=== PATIENT | male | born 1945 | race Caucasian/White ===

== ENCOUNTER → 2016-03-09 | Outpatient (CLI) | payer MEDICARE, BC ==
[2016-03-09 18:43] LABS: CH 22.2; CHCM 29.4; HDW 2.93; HGB 11.6 gm/dL (13.0-17.5); Hypochromasia Marked; MCH 23.1 pg (25.0-35.0); MCHC 30.5 g/dL (31.0-37.0); MCV 75.8 fL (80.0-100.0); Mean Platelet Volume 6.2; Microcytosis Slight; RBC 5.01 m/uL (4.30-5.90); RDW 14.5 % (11.5-15.5); WBC 8.5 k/uL (3.8-10.6)
[2016-03-09 19:06] LABS: Anion Gap 13 mmol/L; Blood Urea Nitrogen 19 mg/dL (9-20); Carbon Dioxide 28 mmol/L (22-30); Chloride 101 mmol/L (98-107); Non-African American GFR(MDRD) >60 (>60 ml/min/1.73 sqM); Potassium 4.7 mmol/L (3.5-5.1); Sodium 142 mmol/L (137-145)
== END | disposition home or self-care (01) ==
LOC: LAB 17:59
PROVIDERS: ATTEND Internal Medicine Interventional Cardiology
DX: Z01.818 Encounter for other preprocedural examination (principal); I25.118 Atherosclerotic heart disease of native coronary artery with other forms of angina pectoris
CPT/HCPCS: 80051; 82565; 84520; 85027

== ENCOUNTER 2016-03-16 05:54 | Day surgery (SDC) | payer MEDICARE, BC ==
[2016-03-13 16:01] VITALS: BMI 29.0
[2016-03-16 06:35] LABS: Glucose,Whole Blood 99 mg/dL (75-99)
[2016-03-16] MEDS ORDERED: NITROGLYCERIN SL TABS 0.4 MG TAB SUBLINGUAL PRN (06:40)
[2016-03-16] MEDS ORDERED: SODIUM CHLORIDE 0.9% 1,000 ML in EMPTY BAG 1 BAG IV ONE (06:40)
[2016-03-16] MEDS ORDERED: ATORVASTATIN 80 MG TAB PO STA (06:40)
[2016-03-16] MEDS ORDERED: ALPRAZolam 0.5 MG TAB PO PRN (06:40)
[2016-03-16] MEDS ORDERED: ALPRAZolam 0.25 MG TAB PO PRN (06:40)
[2016-03-16] MEDS ORDERED: ASPIRIN 325 MG TAB PO STA (06:40)
[2016-03-16] MEDS ORDERED: ASPIRIN 81 MG CHEW PO ONE (06:42)
[2016-03-16] MEDS ORDERED: ASPIRIN 81 MG CHEW ONE (06:43)
[2016-03-16 06:44] LABS: INR 1.4 (<1.1); Prothrombin Time 14.1 sec (9.0-12.0)
[2016-03-16 06:56] LABS: Glucose,Whole Blood 100 mg/dL (75-99)
[2016-03-16] MEDS: MIDAZOLAM 2 MG/2 ML VIAL IVP ONE ×2 (07:22→07:33)
[2016-03-16] MEDS ORDERED: diphenhydrAMINE 50 MG/ML 1 ML VIAL IVP ONE (07:23)
[2016-03-16] MEDS ORDERED: LIDOCAINE 2% INJ 20 MG/ML SQ ONE (07:26)
[2016-03-16 08:12] LABS: Site FA
[2016-03-16 08:13] LABS: Site PA
[2016-03-16] MEDS ORDERED: HYDROmorphone 2 MG/ML 1 ML SYRINGE IVP ONE (08:22)
[2016-03-16] MEDS ORDERED: IOHEXOL 350 MG/ML 100 ML BOTTLE INJ ONE (08:26)
--- NOTE | 2016-03-16 09:46 | CC ---
DATE OF SERVICE: This is a 70-year-old gentleman with a history of hypertension, diabetes, hypercholesterolemia with a history of hypertrophic cardiomyopathy, status post myomectomy more than 25 years ago and also had an aortocoronary bypass surgery that was performed in 2004 with a MORRISON to LAD, a free radial artery graft to the obtuse marginal and a Y-shaped graft to the PDA and PLV branches of the RCA. A cardiac catheterization in 2013 revealed patent grafts, total occlusion of LAD, RCA and diffuse disease of circumflex. Because of increasing symptoms of chest pressure, shortness of breath and significant decrease in functional capacity, he was advised to have a cardiac cath as well as a JASMIN. He has ICD which is a dual-chamber ICD. PROCEDURE NOTE: Under local anesthesia and strict aseptic precautions, a 6-Congolese introducer was placed in the right femoral artery and an 8-Congolese introducer in the right femoral vein. I had considerable difficulty for venous access mainly because of calcification and also scar tissue. Using a right heart balloon tipped catheter, I performed a right heart cath, checked all the pressures, hemodynamics and the catheter was left in the left pulmonary artery. Hemodynamics and saturations and thermodilution cardiac output was performed. Subsequently, using a standard left Leidy catheter, I performed coronary angiography of the left system. Then using a Lenin catheter, I performed selective injection of the RCA and also the MORRISON injection. Using an AR-2 catheter, I performed selective injection of the obtuse marginal graft as well as the RCA graft which was a graft that had 2 limbs. I did not perform an LV gram of check LV pressures, but the patient was going to have a JASMIN. CORONARY ANGIOGRAPHY FINDINGS: LEFT MAIN CORONARY ARTERY: This is a short, patent vessel with diffuse disease of nearly 35% left main stenosis with some damping. Left main itself has moderate disease is a very short left main. LEFT ANTERIOR DESCENDING CORONARY ARTERY: This is a totally occluded and seen as a flush occlusion. LEFT POSTERIOR CIRCUMFLEX CORONARY ARTERY: Technically this is a codominant-type vessel that has diffuse disease. The proximal portion has a 40% stenosis. It gives off a high obtuse marginal that also has diffuse disease then the obtuse marginal branches are somewhat occluded and distally it gives off a posterolateral branch. There is diffuse disease in the circumflex. Interestingly, there opacification of the obtuse marginal branch, which has some competitive flow and this appears to be the bypass graft, which is offering the competitive flow and the attachment is also available in the cranial projection. The obtuse marginal appears to be fairly well opacified. RIGHT CORONARY ARTERY: This vessel is totally occluded in the midportion after an acute marginal branch, which is large and supplies a fair amount of myocardium. RCA therefore is 100% occluded in the midportion. LEFT INTERNAL MAMMARY ARTERY GRAFT TO LAD: This graft is widely patent at its origin, course, insertion site and the opacified LAD has mildly diffuse disease, but no significant obstructive CAD is noted. SAPHENOUS VEIN GRAFT TO THE 2 BRANCHES OF RCA: This is a graft with 2 limbs. The graft is patent in its origin, course, and also both the limbs are patent. The upper limb opacifies the PDA. Lower limb opacifies the PLV branch. Both the vessels are opacified. There is mild diffuse disease and somewhat of a sluggish flow in the second limb, but overall flow is good. I do not think there is any significant lesion. FREE RADIAL ARTERY GRAFT TO THE OBTUSE MARGINAL BRANCH OF CIRCUMFLEX: This graft was opacified using AR-2 catheter. The graft has an ostial disease of maybe 30% or so. The flow in this graft is very good. There is no critical stenosis. The body of the graft is good, insertion site is good and also it opacifies a good-sized obtuse marginal branch that seems to supply a sizable amount of myocardium. The PLV branch/obtuse marginal branch is free of significant disease with minor irregularities. FINAL IMPRESSION: This patient has a total occlusion of LAD in the ostial portion in the RCA in the midportion. Circumflex has diffuse disease. The free radial artery graft to the obtuse marginal is patent with a decent flow with the ostial disease of about 40%. The vein graft to the 2 limbs of RCA is patent with preserved flow, some diffuse disease in the distal branches. The MORRISON to LAD is widely patent with diffuse disease the distal branches. This patient also had a right heart catheterization. The RA pressure was 9 mmHg, RV pressure was 45/9. The PA pressure was 45/18 with a mean of 28. Wedge pressure was 19 mmHg and the V-wave was quite high at 36 mmHg. The thermodilution cardiac output was 5.4 L. The Elaina cardiac output was 4.06 L. Femoral arterial saturation was 95%. The PA saturation was 58%. This patient has decreased cardiac output in general. He has elevated pressures both on the right and left side. There is also significant mitral regurgitation based on the V-wave pattern. RECOMMENDATIONS: I would recommend for coronary disease we will pursue medical therapy but I will await the JASMIN findings. The patient has severely calcified mitral valve with both stenosis and regurgitation. This will be evaluated further and his pulmonary hypertension appears to be moderate. I discussed the findings in detail with the patient and . I will await the results of the JASMIN and then make further recommendations. The patient will be discharged later on today if he remains stable. RADHA
--- NOTE | 2016-03-16 09:49 | LTR ---
March 16, 2016 MORENA GIL DO RE: YouMargarito Dear Dr. Gil: Thank you for the opportunity to participate in the care of Mr. Margarito Orta. Please find enclosed my detailed cardiac cath report for your records. I am also recommending a JASMIN and based on these findings I will make further recommendations. There was no significant progression of disease in terms of his CAD, but he has definitely some mitral regurgitation and abnormal hemodynamics on the right side and this will be clarified by JASMIN and I will make further recommendations. Thank you for your referral and please call for questions. With kindest regards. Sincerely, ALEJANDRO ALLAN MD
[2016-03-16 12:05] LABS: Glucose,Whole Blood 88 mg/dL (75-99)
[2016-03-16] MEDS ORDERED: fentaNYL (PF) 50 MCG/ML 2 ML AMP ONE (12:08)
[2016-03-16] MEDS ORDERED: MIDAZOLAM 2 MG/2 ML VIAL ONE (12:09)
[2016-03-16] MEDS ORDERED: BENZOCAINE SPRAY 100 APPLIC/CAN MUCOUS MEM ONE ×2 (12:27→12:38)
[2016-03-16] MEDS ORDERED: IV FLUID CONTINUATION 450 ML IV ONE (12:27)
[2016-03-16] MEDS ORDERED: fentaNYL (PF) 50 MCG/ML 2 ML AMP IV ONE (12:38)
[2016-03-16] MEDS ORDERED: MIDAZOLAM 2 MG/2 ML VIAL IV ONE (12:38)
[2016-03-16] MEDS ORDERED: MIDAZOLAM 2 MG/2 ML VIAL IVP ONE ×2 (12:42→12:54)
[2016-03-16 13:27] VITALS: RESP 14
--- NOTE | 2016-03-16 13:56 | XR ---
EXAMINATION TYPE: XR chest 1V portable DATE OF EXAM: 03/16/2016 1:32 PM Comparison: 05/25/2012 Clinical History: 70-year-old female difficult intubation after [employer] procedure today. Findings: Left anterior chest wall AICD generator with right atrial and right ventricular leads. Median sternot jhonatan wires are present with post-CABG clips in mediastinum. Heart is mildly enlarged. Diffuse interstitial prominence. No consolidation, pneumothorax, or pleural effusion seen. Impression: Mild cardiomegaly and chronic appearing changes. No acute process seen. No ET tube is visualized.
[2016-03-16 16:35] VITALS: BP 120/62; PULSE 58; TEMP 98
--- NOTE | 2016-03-17 06:37 | ECHOT ---
DATE OF SERVICE: This transesophageal echocardiogram was performed to evaluate the mitral valve and possible rule out any significant mitral stenosis. This patient is status post myomectomy for hypertrophic cardiomyopathy. The patient was given intravenous sedation with Versed and fentanyl and transesophageal echocardiogram was performed without any complications. Left ventricular chamber is normal in size. There is evidence of left ventricular hypertrophy with normal left ventricular systolic function. There is a heavy calcification of the mitral annulus noted, however, mitral leaflets itself are normal and no rheumatic mitral valve deformity is noted. The main gradient of 4 to 5 mmHg is noted across the mitral valve, which is secondary to mitral annular calcification. There is mild mitral regurgitation noted. The mitral valve area by planimeter is about 2.4 to 2.5 sq cm. Aortic valve is mildly calcified and there is a mild aortic stenosis. The aortic valve is about 1.52 sq cm. Mild tricuspid regurgitation is noted. Interatrial septum is intact. There is no evidence of PFO by saline contrast study. FINAL IMPRESSION: 1. There is a heavy calcification of the mitral annulus noted. However, mitral leaflets are fairly normal without any evidence of rheumatic mitral valvular disease. There is a mean gradient of 4 to 5 mmHg noted across the mitral valve, which is secondary to mitral annular calcification. There is a mild mitral regurgitation noted. Mitral valve area calculated by planimeter and pressure half time is in the range of 2.2 to 2.4 sq cm. 2. The aortic valve is calcified and there is a mild to moderate aortic stenosis with aortic valve area calculated in the range of 1.5 sq cm. 3. There is a mild tricuspid and mitral regurgitation noted. 4. There is no evidence of any patent foramen ovale.
== END 2016-03-16 16:55 | disposition home or self-care (01) ==
LOC: CATHCVL 05:54
PROVIDERS: ATTEND Internal Medicine Interventional Cardiology
DX: I25.110 Atherosclerotic heart disease of native coronary artery with unstable angina pectoris (principal); I11.0 Hypertensive heart disease with heart failure; I25.82 Chronic total occlusion of coronary artery; I42.1 Obstructive hypertrophic cardiomyopathy; E78.00 Pure hypercholesterolemia, unspecified; I48.0 Paroxysmal atrial fibrillation; N40.0 Benign prostatic hyperplasia without lower urinary tract symptoms; E66.9 Obesity, unspecified; Z68.29 Body mass index [BMI] 29.0-29.9, adult; Z79.01 Long term (current) use of anticoagulants; Z79.82 Long term (current) use of aspirin; Z79.899 Other long term (current) drug therapy; Z88.3 Allergy status to other anti-infective agents; Z88.2 Allergy status to sulfonamides; Z88.8 Allergy status to other drugs, medicaments and biological substances; Z95.1 Presence of aortocoronary bypass graft; Z95.810 Presence of automatic (implantable) cardiac defibrillator; Z95.5 Presence of coronary angioplasty implant and graft; Z82.49 Family history of ischemic heart disease and other diseases of the circulatory system; I25.2 Old myocardial infarction
CPT/HCPCS: 93312; 93320; 93325; 93457; 85018; 82810; 85610; 71010; C1769 ×4; C1894 ×2; J2001; J2250; J1170; J1200; Q9967; J3010

== ENCOUNTER → 2016-03-28 | Outpatient (CLI) | payer MEDICARE, BC ==
[2016-03-28 10:18] LABS: Calcium 9.6 mg/dL (8.4-10.2); Potassium 5.5 mmol/L (3.5-5.1)
== END | disposition home or self-care (01) ==
LOC: LABWHC1 09:26
PROVIDERS: ATTEND Internal Medicine Interventional Cardiology
DX: I25.10 Atherosclerotic heart disease of native coronary artery without angina pectoris (principal); I50.9 Heart failure, unspecified
CPT/HCPCS: 36415; 80048

== ENCOUNTER → 2016-04-03 | Outpatient (CLI) | payer MEDICARE, BC ==
[2016-04-03 10:08] LABS: Anion Gap 12 mmol/L; Blood Urea Nitrogen 31 mg/dL (9-20); Carbon Dioxide 27 mmol/L (22-30); Chloride 101 mmol/L (98-107); Non-African American GFR(MDRD) 54 (>60 ml/min/1.73 sqM); Potassium 4.7 mmol/L (3.5-5.1); Sodium 140 mmol/L (137-145)
== END | disposition home or self-care (01) ==
LOC: LABWHC1 09:21
PROVIDERS: ATTEND Internal Medicine Interventional Cardiology
DX: E87.5 Hyperkalemia (principal)
CPT/HCPCS: 36415; 80051; 82565; 84520

== ENCOUNTER → 2016-05-18 | Outpatient (CLI) | payer MEDICARE, BC ==
[2016-05-18 10:35] LABS: Anisocytosis Slight; CH 24.4; CHCM 31.3; HCT 45.5 % (39.0-53.0); HDW 2.73; HGB 13.9 gm/dL (13.0-17.5); Hypochromasia Slight; MCH 23.9 pg (25.0-35.0); MCHC 30.6 g/dL (31.0-37.0); MCV 78.3 fL (80.0-100.0); Mean Platelet Volume 7.5; Microcytosis Slight; RBC 5.81 m/uL (4.30-5.90); RDW 18.3 % (11.5-15.5); WBC 10.8 k/uL (3.8-10.6)
[2016-05-18 10:45] LABS: Anion Gap 12 mmol/L; Blood Urea Nitrogen 23 mg/dL (9-20); Calcium 9.7 mg/dL (8.4-10.2); Carbon Dioxide 28 mmol/L (22-30); Chloride 99 mmol/L (98-107); Glucose 109 mg/dL (74-99); INR 2.9 (<1.1); Non-African American GFR(MDRD) >60 (>60 ml/min/1.73 sqM); Prothrombin Time 28.3 sec (9.0-12.0); Sodium 139 mmol/L (137-145)
[2016-05-18 10:57] LABS: Potassium 5.2 mmol/L (3.5-5.1)
== END ==
LOC: LABWHC1 09:38
PROVIDERS: ATTEND Internal Medicine Interventional Cardiology
DX: I50.9 Heart failure, unspecified (principal); I25.10 Atherosclerotic heart disease of native coronary artery without angina pectoris; I48.91 Unspecified atrial fibrillation
CPT/HCPCS: 36415; 80048; 85027; 85610

== ENCOUNTER → 2016-07-06 | Outpatient (CLI) | payer MEDICARE, BC ==
--- NOTE | 2016-07-06 11:38 | CT ---
EXAMINATION TYPE: CT lumbar spine wo con DATE OF EXAM: 07/06/2016 10:22 AM COMPARISON: Previous exam 23 Jul 2012 HISTORY: Patient complains of chronic low back pain with radiation bilaterallly to the legs. Patient has a history of [address] DLP: 1065.4 mGycm Automated exposure control for dose reduction was used. An unenhanced CT of the lumbar spine was performed. Bone and soft tissue window settings are submitt ed as well as coronal and sagittal reconstructions. FINDINGS: Atheromatous changes are present within the aorta, limited dissection is thought to be present at the level of the L3 vertebral body as well as L2. There is no aneurysm. Finding is stable. Surgical brown ges are noted, patient is status post posterior fusion at L2-S1, transpedicular screws are present, h ardware causes streak artifact which may limit the exam. Intervertebral spacing material present L2-3 , L5-S1. Endplate sclerosis present L5-S1, some irregularity of endplate present centrally greater th e inferior endplate of L5 and superior endplate of S1. Diverticular changes incidentally noted in the sigmoid colon. L1-L2: Normal disc space height. No disc herniation protrusion or central stenosis. No facet joint arthropathy. No evidence for foraminal encroachment. L2-L3: Normal disc space height. Posterior extension of endplate disc complex is present causing mild anterior mass effect on the thecal sac, laminectomy changes present. No significant foraminal encroa chment L3-L4: Circumferential extension of endplate disc complex causes mild foraminal encroachment right gr eater than left, no significant central stenosis. Facet arthropathy changes are present. There is eleonora e loss of disc height. L4-L5: Laminectomy changes present. Posterior extension of endplate disc complex contacts the anterio r thecal sac. No significant central stenosis. Circumferential extension of endplate disc complex enc roaches mildly on the neural foramina. Loss of disc height present. There is facet arthropathy. L5-S1: Streak artifact limits the exam. No evident central stenosis. No definite foraminal encroachme nt on the left, circumferential extension of endplate disc complex. 2 encroaches somewhat on the righ t foramen. IMPRESSION: Exam is limited technically. Multilevel degenerative disc disease, postop changes, foraminal encroach ment. Findings at L5-S1 may be postoperative, correlate to exclude infection. Additional findings abo ve.
== END | disposition home or self-care (01) ==
LOC: RADCTMAIN 10:00
PROVIDERS: ATTEND Orthopaedic Surgery
DX: M51.16 Intervertebral disc disorders with radiculopathy, lumbar region (principal); Z98.1 Arthrodesis status
CPT/HCPCS: 72131

== ENCOUNTER → 2016-08-01 | Outpatient (CLI) | payer MEDICARE, BC ==
[2016-08-01 12:57] LABS: Basophils # (A) 0.1 k/uL (0-0.2); Basophils % (A) 1 %; CH 26.2; CHCM 32.1; Eosinophils # (A) 0.6 k/uL (0-0.7); Eosinophils % (A) 5 %; HCT 44.3 % (39.0-53.0); HDW 3.26; HGB 14.2 gm/dL (13.0-17.5); Hypochromasia Slight; Luc % (Auto) 2; Lymphocytes # (A) 1.3 k/uL (1.0-4.8); Lymphocytes % (A) 12 %; MCH 26.2 pg (25.0-35.0); Mean Platelet Volume 6.9; Monocytes % (A) 9 %; Neutrophils % (A) 72 %; RDW 14.6 % (11.5-15.5); WBC 11.2 k/uL (3.8-10.6); WBC (Perox) 10.98
[2016-08-01 13:03] LABS: Appearance,Urine Clear (Clear); Bilirubin,Urine Negative (Negative); Glucose,Urine (UA) Negative (Negative); Ketones,Urine Negative (Negative); Leukocyte Esterase,Urine Negative (Negative); Mucus,Urine Rare /hpf; Nitrite,Urine Negative (Negative); PH, Urine 5.5 (5.0-8.0); Particle Count 2542; Protein,Urine Negative (Negative); RBC,Urine 1 /hpf (0-5); Specific Gravity,Urine 1.008 (1.001-1.035); Squamous Epithelial Cell,Urine <1 /hpf (0-4); UA Billing (MACRO vs. MICRO) MICRO; Urobilinogen,Urine <2.0 mg/dL (<2.0)
[2016-08-01 13:04] LABS: Partial Thromboplastin Time 31.6 sec (22.0-30.0); Prothrombin Time 29.4 sec (9.0-12.0)
[2016-08-01 13:16] LABS: ALT 22 U/L (21-72); AST 24 U/L (17-59); Alkaline Phosphatase 107 U/L (38-126); Anion Gap 10 mmol/L; Blood Urea Nitrogen 23 mg/dL (9-20); Calcium 9.5 mg/dL (8.4-10.2); Carbon Dioxide 30 mmol/L (22-30); Chloride 101 mmol/L (98-107); Glucose 118 mg/dL (74-99); Non-African American GFR(MDRD) 58 (>60 ml/min/1.73 sqM); Potassium 4.7 mmol/L (3.5-5.1); Sodium 141 mmol/L (137-145); Total Bilirubin 1.1 mg/dL (0.2-1.3)
== END | disposition home or self-care (01) ==
LOC: LABWHC1 12:11
PROVIDERS: ATTEND Orthopaedic Surgery
DX: Z01.812 Encounter for preprocedural laboratory examination (principal); D68.9 Coagulation defect, unspecified
CPT/HCPCS: 36415; 80053; 81001; 85025; 85610; 85730; 86850; 86900; 86901; 87070; 87086

== ENCOUNTER 2016-11-24 00:46 | Inpatient (IN) | payer MEDICARE, BC ==
--- NOTE | 2016-11-24 01:11 | ED ---
SOB HPI - General Chief Complaint: Shortness of Breath Stated Complaint: SVETLANA Time Seen by Provider: 11/24/16 00:51 Source: patient Mode of arrival: ambulatory Limitations: no limitations - History of Present Illness Initial Comments: This patient is a 71-year-old man who presents to be evaluated for constellation of symptoms that included feeling shortness of breath, lightheadedness like he would pass out, chest pain and diaphoresis. He states that he has been having episodes like this for about a year. Tonight he got up to use the bathroom and then had all the symptoms come on. He was advised to be checked when he has symptoms like these. The patient states that he is currently completing a pre-surgical evaluation prior to having a mitral valve repair and a pacemaker change. Patient is to have this procedure at [facility]. MD Complaint: shortness of breath Onset/Timin -: year(s) Severity: moderate Quality: dull Consistency: constant Improves With: nothing Worsens With: exertion Known History Of: other (Mitral valve disease) Associated Symptoms: diaphoresis - Related Data Home Medications Medication Instructions Recorded Confirmed Aspirin [Adult Low Dose Aspirin EC] 81 mg PO DAILY 03/16/16 03/16/16 Enalapril [Vasotec] 20 mg PO DAILY 03/16/16 03/16/16 Furosemide [Lasix] 20 mg PO DAILY 03/16/16 03/16/16 Meclizine [Antivert] 25 mg PO BID 03/16/16 03/16/16 Metoprolol Tartrate [Lopressor] 50 mg PO BID 03/16/16 03/16/16 Omeprazole 20 mg PO DAILY 03/16/16 03/16/16 Pravastatin Sodium [Pravachol] 80 mg PO HS 03/16/16 03/16/16 Warfarin [Coumadin] 7.5 mg PO DAILY 03/16/16 03/16/16 amLODIPine [Norvasc] 10 mg PO DAILY 03/16/16 03/16/16 Allergies Allergy/AdvReac Type Severity Reaction Status Date / Time atorvastatin [From Lipitor] Allergy Rash/Hives Verified 11/24/16 00:53 clindamycin Allergy Rash/Hives Verified 11/24/16 00:53 promethazine [From Phenergan] Allergy Confusion Verified 11/24/16 00:53 sulfamethoxazole Allergy Rash/Hives Verified 11/24/16 00:53 [From Bactrim] trimethoprim [From Bactrim] Allergy Rash/Hives Verified 11/24/16 00:53 Review of Systems ROS Statement: Those systems with pertinent positive or pertinent negative responses have been documented in the HPI. ROS Other: All systems not noted in ROS Statement are negative. Constitutional: Reports: weakness (Generalized). Denies: fever, chills Respiratory: Reports: dyspnea. Denies: cough, wheezes Cardiovascular: Reports: chest pain, dyspnea on exertion. Denies: palpitations , orthopnea, edema, syncope Gastrointestinal: Denies: abdominal pain, nausea, vomiting Genitourinary: Denies: dysuria, hematuria Musculoskeletal: Denies: back pain Skin: Denies: rash Neurological: Denies: headache, weakness, numbness Past Medical History Past Medical History: Coronary Artery Disease (CAD), Cancer, Diabetes Mellitus, Eye Disorder, Hyperlipidemia, Hypertension, Myocardial Infarction ([place]), Sleep Apnea/CPAP/BIPAP Additional Past Medical History / Comment(s): [place]- 1968 and 2004. diet control diabetic, bladder cancer, legally blind Last Myocardial Infarction Date:: 2004 History of Any Multi-Drug Resistant Organisms: None Reported Past Surgical History: AICD, Appendectomy, Back Surgery, Cholecystectomy, Coronary Bypass/CABG, Heart Catheterization With Stent, Joint Replacement Additional Past Surgical History / Comment(s): left hip replacement x 3, back x 5, CABG x 2(age 29 and 2006), 18 heart catheterizations, 2-3 stents Past Anesthesia/Blood Transfusion Reactions: Motion Sickness, Postoperative Nausea & Vomiting (PONV) Date of Last Stent Placement:: 2006 Type of Cardiac Device: AICD Device Placement Date:: 2005 Past Psychological History: No Psychological Hx Reported Smoking Status: Never smoker Past Alcohol Use History: None Reported Past Drug Use History: None Reported - Past Family History Mother Family Medical History: No Reported History General Exam Limitations: no limitations General appearance: alert, in no apparent distress Head exam: Present: atraumatic, normocephalic Eye exam: Present: normal appearance. Absent: scleral icterus, conjunctival injection ENT exam: Present: normal oropharynx Respiratory exam: Present: normal lung sounds bilaterally. Absent: respiratory distress, wheezes, rales, rhonchi, stridor Cardiovascular Exam: Present: regular rate, normal rhythm, systolic murmur. Absent: diastolic murmur, rubs, gallop GI/Abdominal exam: Present: soft. Absent: distended, tenderness, guarding, rebound, mass Extremities exam: Present: normal inspection, normal capillary refill. Absent: pedal edema, calf tenderness Back exam: Present: normal inspection. Absent: CVA tenderness (R), CVA tenderness (L) Neurological exam: Present: alert Skin exam: Present: warm, dry, intact, normal color. Absent: rash Course Vital Signs 11/24/16 00:49 Temperature 97.3 F L Pulse Rate 103 H Respiratory 24 Rate Blood Pressure 143/91 O2 Sat by Pulse 100 Oximetry - Reevaluation(s) Reevaluation #1: 11/24/16 02:51 I reviewed the results with the patient and family. I did recommend admission for telemetry monitoring and serial cardiac enzymes. Discussed with the patient whether he would like to be transferred to [facility] for this and at this time the patient believes she would rather stay here, as he believes that he cannot have the procedure any earlier than it is scheduled because he continues to take his Coumadin. The patient has been symptom-free here, basically since receiving the nasal cannula oxygen. He is not having pain or dyspnea. Medical Decision Making - Lab Data Result diagrams: 11/24/16 01:00 11/24/16 01:00 Lab Results 11/24/16 11/24/16 11/24/16 Range/Units 01:00 01:00 01:00 WBC 13.0 H (3.8-10.6) k/uL RBC 5.56 (4.30-5.90) m/uL Hgb 13.1 (13.0-17.5) gm/dL Hct 42.1 (39.0-53.0) % MCV 75.7 L (80.0-100.0) fL MCH 23.6 L (25.0-35.0) pg MCHC 31.2 (31.0-37.0) g/dL RDW 16.2 H (11.5-15.5) % Plt Count 296 (150-450) k/uL Neutrophils % 72 % Lymphocytes % 13 % Monocytes % 9 % Eosinophils % 3 % Basophils % 1 % Neutrophils # 9.4 H (1.3-7.7) k/uL Lymphocytes # 1.7 (1.0-4.8) k/uL Monocytes # 1.2 H (0-1.0) k/uL Eosinophils # 0.4 (0-0.7) k/uL Basophils # 0.1 (0-0.2) k/uL Hypochromasia Moderate Anisocytosis Slight Microcytosis Slight PT (9.0-12.0) sec INR (<1.2) APTT (22.0-30.0) sec Sodium 139 (137-145) mmol/L Potassium 4.2 (3.5-5.1) mmol/L Chloride 102 (98-107) mmol/L Carbon Dioxide 24 (22-30) mmol/L Anion Gap 13 mmol/L BUN 19 (9-20) mg/dL Creatinine 1.10 (0.66-1.25) mg/dL Est GFR (MDRD) Af Amer >60 (>60 ml/min/1.73 sqM) Est GFR (MDRD) Non-Af >60 (>60 ml/min/1.73 sqM) Glucose 100 H (74-99) mg/dL Calcium 9.4 (8.4-10.2) mg/dL Magnesium 2.1 (1.6-2.3) mg/dL Total Bilirubin 0.8 (0.2-1.3) mg/dL AST 23 (17-59) U/L ALT 32 (21-72) U/L Alkaline Phosphatase 137 H (38-126) U/L Troponin I (0.000-0.034) ng/mL NT-Pro-B Natriuret Pep 2000 pg/mL Total Protein 7.4 (6.3-8.2) g/dL Albumin 4.5 (3.5-5.0) g/dL 11/24/16 11/24/16 Range/Units 01:00 01:00 WBC (3.8-10.6) k/uL RBC (4.30-5.90) m/uL Hgb (13.0-17.5) gm/dL Hct (39.0-53.0) % MCV (80.0-100.0) fL MCH (25.0-35.0) pg MCHC (31.0-37.0) g/dL RDW (11.5-15.5) % Plt Count (150-450) k/uL Neutrophils % % Lymphocytes % % Monocytes % % Eosinophils % % Basophils % % Neutrophils # (1.3-7.7) k/uL Lymphocytes # (1.0-4.8) k/uL Monocytes # (0-1.0) k/uL Eosinophils # (0-0.7) k/uL Basophils # (0-0.2) k/uL Hypochromasia Anisocytosis Microcytosis PT 20.7 H (9.0-12.0) sec INR 2.2 H (<1.2) APTT 28.5 (22.0-30.0) sec Sodium (137-145) mmol/L Potassium (3.5-5.1) mmol/L Chloride (98-107) mmol/L Carbon Dioxide (22-30) mmol/L Anion Gap mmol/L BUN (9-20) mg/dL Creatinine (0.66-1.25) mg/dL Est GFR (MDRD) Af Amer (>60 ml/min/1.73 sqM) Est GFR (MDRD) Non-Af (>60 ml/min/1.73 sqM) Glucose (74-99) mg/dL Calcium (8.4-10.2) mg/dL Magnesium (1.6-2.3) mg/dL Total Bilirubin (0.2-1.3) mg/dL AST (17-59) U/L ALT (21-72) U/L Alkaline Phosphatase (38-126) U/L Troponin I 0.044 H* (0.000-0.034) ng/mL NT-Pro-B Natriuret Pep pg/mL Total Protein (6.3-8.2) g/dL Albumin (3.5-5.0) g/dL - EKG Data -: EKG Interpreted by [facility] EKG shows normal: intervals (QRS duration 198 ms, consistent with a paced rhythm ) Rate: tachycardia (Rate 103 bpm) Interpretation: other (Patient's underlying rhythm appears to be a ventricular paced rhythm at approximately 103 bpm.) Disposition Clinical Impression: Acute coronary syndrome Disposition: ADMITTED IP TO THIS [facility] Condition: Fair Referrals: Chester Gil DO [Primary Care Provider] - 1-2 days
[2016-11-24 01:20] LABS: Anisocytosis Slight; Basophils # (A) 0.1 k/uL (0-0.2); Basophils % (A) 1 %; CH 23.6; CHCM 31.2; Eosinophils # (A) 0.4 k/uL (0-0.7); Eosinophils % (A) 3 %; HCT 42.1 % (39.0-53.0); HDW 2.96; HGB 13.1 gm/dL (13.0-17.5); Hypochromasia Moderate; Luc # (Auto) 0.21; Luc % (Auto) 2; Lymphocytes # (A) 1.7 k/uL (1.0-4.8); Lymphocytes % (A) 13 %; MCH 23.6 pg (25.0-35.0); MCHC 31.2 g/dL (31.0-37.0); MCV 75.7 fL (80.0-100.0); Mean Platelet Volume 7.6; Microcytosis Slight; Monocytes # (A) 1.2 k/uL (0-1.0); Monocytes % (A) 9 %; Neutrophils # (A) 9.4 k/uL (1.3-7.7); Neutrophils % (A) 72 %; RBC 5.56 m/uL (4.30-5.90); RDW 16.2 % (11.5-15.5); WBC (Perox) 13.43
[2016-11-24 01:29] LABS: ALT 32 U/L (21-72); AST 23 U/L (17-59); Alkaline Phosphatase 137 U/L (38-126); Anion Gap 13 mmol/L; Blood Urea Nitrogen 19 mg/dL (9-20); Calcium 9.4 mg/dL (8.4-10.2); Carbon Dioxide 24 mmol/L (22-30); Chloride 102 mmol/L (98-107); Glucose 100 mg/dL (74-99); Magnesium 2.1 mg/dL (1.6-2.3); Non-African American GFR(MDRD) >60 (>60 ml/min/1.73 sqM); Potassium 4.2 mmol/L (3.5-5.1); Sodium 139 mmol/L (137-145); Total Bilirubin 0.8 mg/dL (0.2-1.3); Total Protein 7.4 g/dL (6.3-8.2)
[2016-11-24 01:39] LABS: INR 2.2 (<1.2); Partial Thromboplastin Time 28.5 sec (22.0-30.0); Prothrombin Time 20.7 sec (9.0-12.0)
--- NOTE | 2016-11-24 02:12 | XR ---
EXAM: XR Chest, 1 View CLINICAL HISTORY: Reason: dyspnea TECHNIQUE: Frontal view of the chest. COMPARISON: CT chest 06/08/16 FINDINGS: Lungs: No overt pulmonary edema. No focal consolidation. Pleural space: No pleural effusion or pneumothorax. Heart: Cardiomegaly. Left chest wall cardiac pacer. Mediastinum: Unremarkable. Bones/joints: Median sternotomy wires. IMPRESSION: Stable cardiomegaly. No overt pulmonary edema. No focal consolidation.
[2016-11-24] MEDS ORDERED: NITROGLYCERIN SL TABS 0.4 MG TAB SUBLINGUAL PRN (02:31)
[2016-11-24 04:16] VITALS: BMI 29.0
[2016-11-24 04:43] LABS: Creatine Kinase MB 3.1 ng/mL (0.0-2.4); Troponin I 0.042 ng/mL (0.000-0.034)
[2016-11-24] MEDS: PANTOPRAZOLE 40 MG TABLET PO SCH (06:53)
[2016-11-24] MEDS ORDERED: FUROSEMIDE 20 MG TAB PO SCH (09:00)
[2016-11-24] MEDS ORDERED: amLODIPine 10 MG TAB PO SCH (09:00)
[2016-11-24] MEDS: ASPIRIN 81 MG PO SCH (09:40)
[2016-11-24] MEDS: METOPROLOL TARTRATE 50 MG TAB PO SCH ×2 (09:41→20:26)
[2016-11-24] MEDS: LISINOPRIL 20 MG TAB PO SCH (09:41)
[2016-11-24] MEDS: MECLIZINE 25 MG TAB PO SCH ×2 (09:41→20:26)
[2016-11-24 10:35] LABS: Creatine Kinase MB 2.6 ng/mL (0.0-2.4); Troponin I 0.048 ng/mL (0.000-0.034)
--- NOTE | 2016-11-24 11:31 | P.HPIM ---
History of Present Illness 71-year-old man came in with the multiple symptoms of shortness of breath and chest pressure like sensation and lightheadedness all of which resolved at this point of time patient blood pressure is mildly low normal and patient is taking 10 mg of amlodipine 40 mg of lisinopril amlodipine dose will be lowered to 5 mg. And patient does have history of mitral valve regurgitation and the echo was evaluated in the past in [facility] for possibility of mitral valve replacement and he was told he may not require any emergent replacement at this point of time patient had a pacemaker which probably will need to be switched to bI Vthe past for the patient for which patient will follow with in [facility] and patient had minimal elevated troponin of 0.06 for which cardiology evaluated the patient patient EKG showed completely pacer rhythm. Awaiting cardiology recommendations. Patient's symptoms completely resolved at this point of time, depending on cardiology recommendations patient probably will be discharged today to follow up in [facility]. Review of Systems REVIEW OF SYSTEMS: CONSTITUTIONAL: No fever, no malaise, no fatigue. HEENT: No recent visual problems or hearing problems. Denied any sore throat. CARDIOVASCULAR: No orthopnea, PND, no palpitations, no syncope. PULMONARY: no cough, no hemoptysis. GASTROINTESTINAL: No diarrhea, no nausea, no vomiting, no abdominal pain. Normoactive bowel sounds. NEUROLOGICAL: No headaches, no weakness, no numbness. HEMATOLOGICAL: Denies any bleeding or petechiae. GENITOURINARY: Denies any burning micturition, frequency, or urgency. MUSCULOSKELETAL/RHEUMATOLOGICAL: Denies any joint pain, swelling, or any muscle pain. ENDOCRINE: Denies any polyuria or polydipsia. The rest of the 14-point review of systems is negative. Past Medical History Past Medical History: Coronary Artery Disease (CAD), Cancer, Diabetes Mellitus, Eye Disorder, Hyperlipidemia, Hypertension, Myocardial Infarction ([place]), Sleep Apnea/CPAP/BIPAP Additional Past Medical History / Comment(s): [place]- 1968 and 2004. diet control diabetic, bladder cancer, legally blind Last Myocardial Infarction Date:: 2004 History of Any Multi-Drug Resistant Organisms: None Reported Past Surgical History: AICD, Appendectomy, Back Surgery, Cholecystectomy, Coronary Bypass/CABG, Heart Catheterization With Stent, Joint Replacement Additional Past Surgical History / Comment(s): left hip replacement x 3, back x 5, CABG x 2(1974 and 2004), 18 heart catheterizations, 2-3 stents Past Anesthesia/Blood Transfusion Reactions: Motion Sickness, Postoperative Nausea & Vomiting (PONV) Date of Last Stent Placement:: 2006 Type of Cardiac Device: AICD Device Placement Date:: 2012 Past Psychological History: No Psychological Hx Reported Smoking Status: Never smoker Past Alcohol Use History: None Reported Past Drug Use History: None Reported - Past Family History Mother Family Medical History: No Reported History Medications and Allergies Home Medications Medication Instructions Recorded Confirmed Type Aspirin [Adult Low Dose Aspirin EC] 81 mg PO DAILY 03/16/16 11/24/16 History Furosemide [Lasix] 20 mg PO DAILY 03/16/16 11/24/16 History Metoprolol Tartrate [Lopressor] 50 mg PO BID 03/16/16 11/24/16 History Omeprazole 20 mg PO DAILY 03/16/16 11/24/16 History Pravastatin Sodium [Pravachol] 80 mg PO HS 03/16/16 11/24/16 History Warfarin [Coumadin] 7.5 mg PO PC-SUPPER 03/16/16 11/24/16 History amLODIPine [Norvasc] 10 mg PO DAILY 03/16/16 11/24/16 History Ascorbic Acid [Vitamin C] 500 mg PO BID 11/24/16 11/24/16 History Ferrous Sulfate [Feosol] 325 mg PO BID 11/24/16 11/24/16 History Multivitamins, Thera [Multivitamin 1 tab PO DAILY 11/24/16 11/24/16 History (formulary)] Vit C/E/Zn/Coppr/Lutein/Zeaxan 1 cap PO DAILY 11/24/16 11/24/16 History [Preservision Areds 2 Softgel] Allergies Allergy/AdvReac Type Severity Reaction Status Date / Time atorvastatin [From Lipitor] Allergy Rash/Hives Verified 11/24/16 10:04 clindamycin Allergy Rash/Hives Verified 11/24/16 10:04 Iodinated Contrast- Oral and Allergy Anaphylaxis Verified 11/24/16 10:04 IV Dye promethazine [From Phenergan] Allergy Confusion Verified 11/24/16 10:04 sulfamethoxazole Allergy Rash/Hives Verified 11/24/16 10:04 [From Bactrim] trimethoprim [From Bactrim] Allergy Rash/Hives Verified 11/24/16 10:04 Physical Exam Vitals: Vital Signs Temp Pulse Pulse Resp BP BP Pulse Ox 11/24/16 08:25 96.1 F L 66 18 112/58 99 11/24/16 03:28 97.1 F L 98 18 120/80 100 11/24/16 03:03 98.0 F 97 20 118/77 100 11/24/16 00:49 97.3 F L 103 H 24 143/91 100 Intake and Output 11/23/16 11/24/16 11/24/16 22:59 06:59 14:59 Intake Total 237 Balance 237 Intake: Oral 237 Other: # Voids 1 Weight 91.9 kg PHYSICAL EXAMINATION: GENERAL: The patient is alert and oriented x3, not in any acute distress. Well developed, well nourished. HEENT: Pupils are round and equally reacting to light. EOMI. No scleral icterus. No conjunctival pallor. Normocephalic, atraumatic. No pharyngeal erythema. No thyromegaly. CARDIOVASCULAR: S1 and S2 present. No rubs, or gallops. Patient has on systolic murmur in the mitral area PULMONARY: Chest is clear to auscultation, no wheezing or crackles. ABDOMEN: Soft, nontender, nondistended, normoactive bowel sounds. No palpable organomegaly. MUSCULOSKELETAL: No joint swelling or deformity. EXTREMITIES: No cyanosis, clubbing, or pedal edema. NEUROLOGICAL: Gross neurological examination did not reveal any focal deficits. SKIN: No rashes. Results CBC & Chem 7: 11/24/16 01:00 11/24/16 01:00 Labs: Abnormal Lab Results - Last 24 Hours (Table) 11/24/16 11/24/16 11/24/16 Range/Units 01:00 01:00 01:00 WBC 13.0 H (3.8-10.6) k/uL MCV 75.7 L (80.0-100.0) fL MCH 23.6 L (25.0-35.0) pg RDW 16.2 H (11.5-15.5) % Neutrophils # 9.4 H (1.3-7.7) k/uL Monocytes # 1.2 H (0-1.0) k/uL PT 20.7 H (9.0-12.0) sec INR 2.2 H (<1.2) Glucose 100 H (74-99) mg/dL Alkaline Phosphatase 137 H (38-126) U/L Total Creatine Kinase (55-170) U/L CK-MB (CK-2) (0.0-2.4) ng/mL Troponin I (0.000-0.034) ng/mL 11/24/16 11/24/16 11/24/16 Range/Units 01:00 03:31 09:00 WBC (3.8-10.6) k/uL MCV (80.0-100.0) fL MCH (25.0-35.0) pg RDW (11.5-15.5) % Neutrophils # (1.3-7.7) k/uL Monocytes # (0-1.0) k/uL PT (9.0-12.0) sec INR (<1.2) Glucose (74-99) mg/dL Alkaline Phosphatase (38-126) U/L Total Creatine Kinase 54 L 37 L (55-170) U/L CK-MB (CK-2) 3.1 H* 2.6 H* (0.0-2.4) ng/mL Troponin I 0.044 H* 0.042 H* 0.048 H* (0.000-0.034) ng/mL Thrombosis Risk Factor Assmnt - Choose All That Apply Any of the Below Risk Factors Present?: No Assessment and Plan Plan: #1 chest pain, we'll rule out acute coronary syndromes troponin is not high enough to say non-ST elevation myocardial infarction. Cardiology will a valid the patient her chest pain may be related to mitral regurgitation. #2 shortness of breath probably related to mitral regurgitation although patient does not have any pulmonary edema at this point of time. #3 mitral regurgitation #4 hypertension #5 sleep apnea: Patient uses CPAP machine at home. #6 type 2 diabetes mellitus #7 hypertension #8 hyperlipidemia Plan: Awaiting cardiology evaluation if they cleared him for discharge patient will be discharged today. Further workup for Bi V AICD placement as an outpatient and follow-up in [facility]
--- NOTE | 2016-11-24 11:41 | P.CRDCN ---
History of Present Illness Consult date: 11/24/16 Chief complaint: Shortness of breath History of present illness: This is a pleasant 71-year-old male gentleman who sees Dr. REBA Tsang in the office as an outpatient with a past medical history significant for coronary artery disease and status post CABG with the last heart catheterization was performed in March 2016 showing severe triple-vessel CAD with patent MORRISON to LAD, patent free NAOMIE to OM, and patent SVG to RCA, as well as known hypertrophic cardiomyopathy and status post septal myomectomy, status post single-chamber AICD, as well as paroxysmal A. fib presented to the hospital complaining of shortness of breath. The patient has been struggling with this shortness of breath for the last year. In March 2016 he underwent a heart catheterization and the finding as above. At the same time he underwent transesophageal echocardiogram and that showed normal LV function with mild to moderate valvular abnormalities. In view of the persistent shortness of breath, the patient was referred to [facility]. He was seen and evaluated and he underwent testing over there we don't have the details on that. The patient stated that he was told to come back for possible what it seems to be synchronization therapy on his device. And I think the patient will be going to have a grading into by the ICD. He states that he was in his usual state of health until yesterday when he was going to the bathroom and felt sudden onset of shortness of breath and a chest discomfort. The chest x-ray this time showed no acute abnormalities. The EKG showed paced rhythm. The BNP came in to be alleviated. The cardiac enzymes are mildly alleviated. Past Medical History Past Medical History: Coronary Artery Disease (CAD), Cancer, Diabetes Mellitus, Eye Disorder, Hyperlipidemia, Hypertension, Myocardial Infarction ([place]), Sleep Apnea/CPAP/BIPAP Additional Past Medical History / Comment(s): [place]- 1968 and 2004. diet control diabetic, bladder cancer, legally blind Last Myocardial Infarction Date:: 2004 History of Any Multi-Drug Resistant Organisms: None Reported Past Surgical History: AICD, Appendectomy, Back Surgery, Cholecystectomy, Coronary Bypass/CABG, Heart Catheterization With Stent, Joint Replacement Additional Past Surgical History / Comment(s): left hip replacement x 3, back x 5, CABG x 2(1974 and 2004), 18 heart catheterizations, 2-3 stents Past Anesthesia/Blood Transfusion Reactions: Motion Sickness, Postoperative Nausea & Vomiting (PONV) Date of Last Stent Placement:: 2006 Type of Cardiac Device: AICD Device Placement Date:: 2012 Past Psychological History: No Psychological Hx Reported Smoking Status: Never smoker Past Alcohol Use History: None Reported Past Drug Use History: None Reported - Past Family History Mother Family Medical History: No Reported History Medications and Allergies Home Medications Medication Instructions Recorded Confirmed Type Aspirin [Adult Low Dose Aspirin EC] 81 mg PO DAILY 03/16/16 11/24/16 History Furosemide [Lasix] 20 mg PO DAILY 03/16/16 11/24/16 History Metoprolol Tartrate [Lopressor] 50 mg PO BID 03/16/16 11/24/16 History Omeprazole 20 mg PO DAILY 03/16/16 11/24/16 History Pravastatin Sodium [Pravachol] 80 mg PO HS 03/16/16 11/24/16 History Warfarin [Coumadin] 7.5 mg PO PC-SUPPER 03/16/16 11/24/16 History amLODIPine [Norvasc] 10 mg PO DAILY 03/16/16 11/24/16 History Ascorbic Acid [Vitamin C] 500 mg PO BID 11/24/16 11/24/16 History Ferrous Sulfate [Feosol] 325 mg PO BID 11/24/16 11/24/16 History Multivitamins, Thera [Multivitamin 1 tab PO DAILY 11/24/16 11/24/16 History (formulary)] Vit C/E/Zn/Coppr/Lutein/Zeaxan 1 cap PO DAILY 11/24/16 11/24/16 History [Preservision Areds 2 Softgel] Allergies Allergy/AdvReac Type Severity Reaction Status Date / Time atorvastatin [From Lipitor] Allergy Rash/Hives Verified 11/24/16 10:04 clindamycin Allergy Rash/Hives Verified 11/24/16 10:04 Iodinated Contrast- Oral and Allergy Anaphylaxis Verified 11/24/16 10:04 IV Dye promethazine [From Phenergan] Allergy Confusion Verified 11/24/16 10:04 sulfamethoxazole Allergy Rash/Hives Verified 11/24/16 10:04 [From Bactrim] trimethoprim [From Bactrim] Allergy Rash/Hives Verified 11/24/16 10:04 Physical Exam Vitals: Vital Signs Temp Pulse Pulse Resp BP BP Pulse Ox 11/24/16 08:25 96.1 F L 66 18 112/58 99 11/24/16 03:28 97.1 F L 98 18 120/80 100 11/24/16 03:03 98.0 F 97 20 118/77 100 11/24/16 00:49 97.3 F L 103 H 24 143/91 100 Intake and Output 11/23/16 11/24/16 11/24/16 22:59 06:59 14:59 Intake Total 237 Balance 237 Intake: Oral 237 Other: # Voids 1 Weight 91.9 kg - Constitutional General appearance: no acute distress - Respiratory Respiratory: bilateral: CTA - Cardiovascular Rhythm: regular Heart sounds: normal: S1, S2 Abnormal Heart Sounds: systolic murmur Results 11/24/16 01:00 11/24/16 01:00 Cardiac Enzymes 11/24/16 11/24/16 11/24/16 Range/Units 01:00 01:00 03:31 AST 23 (17-59) U/L CK-MB (CK-2) 3.1 H* (0.0-2.4) ng/mL Troponin I 0.044 H* 0.042 H* (0.000-0.034) ng/mL 11/24/16 Range/Units 09:00 AST (17-59) U/L CK-MB (CK-2) 2.6 H* (0.0-2.4) ng/mL Troponin I 0.048 H* (0.000-0.034) ng/mL Coagulation 11/24/16 Range/Units 01:00 PT 20.7 H (9.0-12.0) sec APTT 28.5 (22.0-30.0) sec CBC 11/24/16 Range/Units 01:00 WBC 13.0 H (3.8-10.6) k/uL RBC 5.56 (4.30-5.90) m/uL Hgb 13.1 (13.0-17.5) gm/dL Hct 42.1 (39.0-53.0) % Plt Count 296 (150-450) k/uL Comprehensive Metabolic Panel 11/24/16 Range/Units 01:00 Sodium 139 (137-145) mmol/L Potassium 4.2 (3.5-5.1) mmol/L Chloride 102 (98-107) mmol/L Carbon Dioxide 24 (22-30) mmol/L BUN 19 (9-20) mg/dL Creatinine 1.10 (0.66-1.25) mg/dL Glucose 100 H (74-99) mg/dL Calcium 9.4 (8.4-10.2) mg/dL AST 23 (17-59) U/L ALT 32 (21-72) U/L Alkaline Phosphatase 137 H (38-126) U/L Total Protein 7.4 (6.3-8.2) g/dL Albumin 4.5 (3.5-5.0) g/dL Current Medications Generic Name Dose Route Start Last Admin Trade Name Freq PRN Reason Stop Dose Admin Amlodipine Besylate 5 mg 11/25/16 09:00 Norvasc PO DAILY KUN Aspirin 81 mg 11/24/16 09:00 11/24/16 09:40 Aspirin PO 81 mg DAILY KUN Administration Furosemide 20 mg 11/24/16 09:00 11/24/16 09:41 Lasix PO 20 mg DAILY KUN Administration Lisinopril 40 mg 11/24/16 09:00 11/24/16 09:41 Zestril PO 40 mg DAILY KUN Administration Meclizine HCl 25 mg 11/24/16 09:00 11/24/16 09:41 Antivert PO 25 mg BID KUN Administration Metoprolol Tartrate 50 mg 11/24/16 09:00 11/24/16 09:41 Lopressor PO 50 mg BID KUN Administration Nitroglycerin 0.4 mg 11/24/16 02:31 Nitrostat SUBLINGUAL Q5M PRN Chest Pain Pantoprazole Sodium 40 mg 11/24/16 07:30 11/24/16 06:53 Protonix PO Not Given AC-BRKFST [facility] Pravastatin Sodium 80 mg 11/24/16 21:00 Pravachol PO HS [facility] Warfarin Sodium 7.5 mg 11/24/16 18:00 Coumadin PO 1800 [facility] Intake and Output 11/23/16 11/24/16 11/24/16 22:59 06:59 14:59 Intake Total 237 Balance 237 Intake: Oral 237 Other: # Voids 1 Weight 91.9 kg 11/24/16 01:00 11/24/16 01:00 Assessment and Plan Plan: In view of the sudden onset of shortness of breath I will obtain d-dimer to rule out any PE. When the patient came into the ER he was on Coumadin but the INR was subtherapeutic. Also in view of elevated BNP and the continuous shortness of breath I'm going to DC the Lasix by mouth and put him on Lasix IV. We'll continue the rest of his medications. Obtain an echocardiogram was Doppler. And follow-up with him.
[2016-11-24] MEDS ORDERED: RX INFO: IV CONTRAST WAS GIVEN 1 EACH MISC MISCELLANE PRN (17:20)
[2016-11-24] MEDS ORDERED: WARFARIN 7.5 MG TAB PO SCH (18:00)
--- NOTE | 2016-11-24 18:47 | ECHOF ---
Referral Reason:sob MEASUREMENTS -------- HEIGHT: 152.4 cm WEIGHT: 91.6 kg BP: 101/63 IVSd: 1.5 cm (0.6 - 1.1) LVIDd: 4.7 cm (3.9 - 5.3) LVPWd: 1.5 cm (0.6 - 1.1) IVSs: 1.8 cm LVIDs: 4.3 cm LVPWs: 1.5 cm LAESV Index (A-L): 72.53 ml/m Ao Diam: 3.7 cm (2.0 - 3.7) AV Cusp: 2.1 cm (1.5 - 2.6) LA Diam: 4.4 cm (2.7 - 3.8) MV EXCURSION: 13.883 mm (> 18.000) MV EF SLOPE: 62 mm/s (70 - 150) EPSS: 1.0 cm MV E Rene: 1.42 m/s MV DecT: 358 ms MV A Rene: 1.33 m/s MV E/A Ratio: 1.06 RAP: 5.00 mmHg RVSP: 25.10 mmHg FINDINGS -------- Paced rhythm. This was a technically adequate study. There is severe concentric left ventricular hypertrophy. Overall left ventricular systolic function is moderate-severely impaired with, an EF between 30 - 35 %. The right ventricle is normal in size. LA is severely dilated >40 ml/m2 The right atrial size is normal. There is mild to moderate aortic valve sclerosis. The peak and mean MV gradients are 9.88mmHg 2.35mmHg as measured by doppler. Mitral Valve Area by PHT 2.1cm The peak and mean MV gradients are 9.88mmHg 2.35mmHg as measured by doppler. Moderate mitral stenosis. Mild tricuspid regurgitation present. There is no evidence of pulmonary hypertension. The right ventricular systolic pressure, as measured by Doppler, is 25.10mmHg. Trace/mild (physiologic) pulmonic regurgitation. The aortic root size is normal. There is no pericardial effusion. CONCLUSIONS -------- 1. There is severe concentric left ventricular hypertrophy. 2. The right ventricular systolic pressure, as measured by Doppler, is 25.10mmHg. 3. Trace/mild (physiologic) pulmonic regurgitation. 4. The aortic root size is normal. 5. There is no pericardial effusion. 6. Overall left ventricular systolic function is moderate-severely impaired with, an EF between 30 - 35 %. LEAD IN RV 7. LA is severely dilated >40 ml/m2 8. There is mild to moderate aortic valve sclerosis. 9. The peak and mean MV gradients are 9.88mmHg 2.35mmHg as measured by doppler. 10. Mitral Valve Stenosis MVA By PHT 2.1cm with a Peak/Mean PG 9.88mmHg 2.35mmHg 11. Moderate mitral stenosis.THICKENED /CALCIFIC 12. Mild tricuspid regurgitation present. 13. There is no evidence of pulmonary hypertension. SCIENTIFIC MANAGER: Annelise Shin RDCS
[2016-11-24] MEDS ORDERED: diphenhydrAMINE 50 MG/ML 1 ML VIAL IVP ONE (19:22)
[2016-11-24] MEDS ORDERED: FAMOTIDINE 20 MG/2 ML VIAL IV ONE (19:22)
[2016-11-24] MEDS ORDERED: methylPREDNISolone SOD SUCCI 125 MG/2 ML VIAL IV ONE (19:22)
[2016-11-24] MEDS: FUROSEMIDE 10 MG/ML 4 ML VIAL IV SCH (20:27)
--- NOTE | 2016-11-24 20:48 | CT ---
EXAMINATION TYPE: CT angio chest DATE OF EXAM: 11/24/2016 8:16 PM COMPARISON: 06/08/2016 HISTORY: Shortness of breath. CT DLP: 517.50 mGycm Automated exposure control for dose reduction was used. CONTRAST: CTA scan of the thorax is performed with IV Contrast, patient injected with 92 mL of Omnipaque 350, p ulmonary embolism protocol. . FINDINGS: LUNGS: The lungs are grossly clear, there is no concerning parenchymal mass or nodule identified. T here is no pleural effusion or pneumothorax seen. The tracheobronchial tree is patent. MEDIASTINUM: There is satisfactory enhancement of the pulmonary artery and its branches, there is no CT evidence for pulmonary embolism. There are no greater than 1 cm hilar or mediastinal lymph nodes. Mild cardiomegaly noted. Sternal sutures and mediastinal clips are noted within prominent left and right [place] coronary calcifications noted. The bypass graft cannot be evaluated due to contrast opac ification remaining in the pulmonary arterial phase for this examination. Mitral valve plane calcific ations. No pericardial effusion is seen. OTHER: No additional significant abnormality is seen. IMPRESSION: NO ACUTE PROCESS. PROMINENT CORONARY CALCIFICATIONS.
[2016-11-24] MEDS ORDERED: PRAVASTATIN SODIUM 80 MG TAB PO SCH (21:00)
[2016-11-24] MEDS ORDERED: ALPRAZolam 0.25 MG TAB PO PRN (23:22)
[2016-11-25 07:03] VITALS: RESP 16
[2016-11-25 07:36] LABS: Cholesterol 143 mg/dL (<200); HDL Cholesterol 39 mg/dL (40-60)
[2016-11-25] MEDS ORDERED: amLODIPine 5 MG TAB PO SCH (09:00)
[2016-11-25] MEDS ORDERED: ASPIRIN 325 MG TAB PO SCH (09:00)
[2016-11-25] MEDS: FUROSEMIDE 10 MG/ML 4 ML VIAL IV SCH (09:38)
[2016-11-25] MEDS: MECLIZINE 25 MG TAB PO SCH (09:41)
[2016-11-25] MEDS: METOPROLOL TARTRATE 50 MG TAB PO SCH (09:41)
[2016-11-25] MEDS: ASPIRIN 81 MG PO SCH (09:41)
[2016-11-25] MEDS: PANTOPRAZOLE 40 MG TABLET PO SCH (09:42)
--- NOTE | 2016-11-25 10:10 | P.PN ---
Progress Note - Text This is a pleasant 71-year-old male gentleman who sees Dr. REBA Tsang in the office as an outpatient with a past medical history significant for coronary artery disease and status post CABG with the last heart catheterization was performed in March 2016 showing severe triple-vessel CAD with patent MORRISON to LAD, patent free NAOMIE to OM, and patent SVG to RCA, as well as known hypertrophic cardiomyopathy and status post septal myomectomy, status post single-chamber AICD, as well as paroxysmal A. fib presented to the hospital complaining of shortness of breath. The patient has been struggling with this shortness of breath for the last year. In March 2016 he underwent a heart catheterization and the finding as above. At the same time he underwent transesophageal echocardiogram and that showed normal LV function with mild to moderate valvular abnormalities. In view of the persistent shortness of breath, the patient was referred to [facility]. He was seen and evaluated and he underwent testing over there we don't have the details on that. The patient stated that he was told to come back for possible what it seems to be synchronization therapy on his device. And I think the patient will be going to have a grading into by the ICD. He states that he was in his usual state of health until yesterday when he was going to the bathroom and felt sudden onset of shortness of breath and a chest discomfort. The chest x-ray this time showed no acute abnormalities. The EKG showed paced rhythm. The BNP came in to be alleviated. The cardiac enzymes are mildly alleviated. The d-dimer came in to be abnormal but the CTA of the chest showed no abnormalities. The patient continues to have shortness of breath. He underwent an echocardiogram which showed severe impaired LV function with an ejection fraction of 30-35%. The patient expressed the wishes that he wants to be transferred to [facility]. We will start working on that.
[2016-11-25 10:14] VITALS: TEMP 97.1
[2016-11-25 11:11] VITALS: BP 104/55; PULSE 61
[2016-11-25] MEDS: LISINOPRIL 20 MG TAB PO SCH (12:04)
--- NOTE | 2016-11-26 07:45 | DS ---
DISCHARGE SUMMARY FINAL DIAGNOSIS: 1. Chest pain, possible acute coronary syndrome. 2. Shortness of breath the possibility due to coronary disease or mitral regurgitation. 3. Hypertension. 4. Sleep apnea. DISCHARGE DISPOSITION: The patient being transferred to [facility] in stable condition with guarded prognosis. HISTORY OF PRESENT ILLNESS: This 71-year-old gentleman with a past medical history of multiple medical problems being followed by Cardiology and [facility] recently was admitted with shortness of breath and multiple symptomatology. Patient treated symptomatically. Cardiology saw the patient and the patient transferred to [facility] in stable condition with guarded prognosis for further evaluation and treatment. The patient is already undergoing testing at [facility]. The reports are not available at this time with possible resynchronization therapy was considered per Dr. Reece. Please refer to Dr. Reece and other consultation progress notes for further details. Please refer to the discharge medication list for list of discharge medications. MMODL / IJN: [id number] /
== END 2016-11-25 12:56 | disposition short-term general hospital (02) | DRG 311 ==
LOC: EC 00:46 → 6SEL 02:31
PROVIDERS: ADMIT Hospitalist; ATTEND Hospitalist
DX: I24.9 Acute ischemic heart disease, unspecified (principal); I42.2 Other hypertrophic cardiomyopathy; E11.9 Type 2 diabetes mellitus without complications; I48.0 Paroxysmal atrial fibrillation; I34.0 Nonrheumatic mitral (valve) insufficiency; I10 Essential (primary) hypertension; I25.10 Atherosclerotic heart disease of native coronary artery without angina pectoris; I25.2 Old myocardial infarction; E78.5 Hyperlipidemia, unspecified; H54.8 Legal blindness, as defined in USA; G47.30 Sleep apnea, unspecified; Z79.82 Long term (current) use of aspirin; Z79.899 Other long term (current) drug therapy; Z79.01 Long term (current) use of anticoagulants; Z85.51 Personal history of malignant neoplasm of bladder; Z90.49 Acquired absence of other specified parts of digestive tract; Z95.1 Presence of aortocoronary bypass graft; Z95.5 Presence of coronary angioplasty implant and graft; Z96.642 Presence of left artificial hip joint; Z95.810 Presence of automatic (implantable) cardiac defibrillator; Z88.1 Allergy status to other antibiotic agents; Z88.2 Allergy status to sulfonamides; Z88.8 Allergy status to other drugs, medicaments and biological substances
CPT/HCPCS: 36415; 71010; 71275; 80053; 80061; 82550; 82553; 83735; 83880; 84484; 85025; 85379; 85610; 85730; 93005; 93306; 99285

== ENCOUNTER → 2017-10-26 | Outpatient (CLI) | payer MEDICARE, BC ==
[2017-10-26 15:46] LABS: Basophils # (A) 0.1 k/uL (0-0.2); Basophils % (A) 1 %; Eosinophils # (A) 0.3 k/uL (0-0.7); Eosinophils % (A) 3 %; HCT 43.1 % (39.0-53.0); HGB 13.1 gm/dL (13.0-17.5); Hypochromasia Moderate; Lymphocytes # (A) 1.2 k/uL (1.0-4.8); Lymphocytes % (A) 13 %; MCHC 30.3 g/dL (31.0-37.0); MCV 85.6 fL (80.0-100.0); Mean Platelet Volume 6.8; Monocytes # (A) 0.9 k/uL (0-1.0); Monocytes % (A) 10 %; Neutrophils # (A) 6.7 k/uL (1.3-7.7); Neutrophils % (A) 72 %; Platelet Count 246 k/uL (150-450); RBC 5.03 m/uL (4.30-5.90); RDW 13.8 % (11.5-15.5); WBC 9.4 k/uL (3.8-10.6)
[2017-10-26 15:54] LABS: INR 3.5 (<1.2); Prothrombin Time 30.9 sec (9.0-12.0)
[2017-10-26 16:02] LABS: Magnesium 2.2 mg/dL (1.6-2.3); Potassium 4.3 mmol/L (3.5-5.1)
[2017-10-26 17:30] LABS: Calcium 9.3 mg/dL (8.4-10.2)
== END | disposition home or self-care (01) ==
LOC: LABWHC1 15:25
PROVIDERS: ATTEND Internal Medicine
DX: I48.0 Paroxysmal atrial fibrillation (principal)
CPT/HCPCS: 36415; 80048; 83735; 85025; 85610

== ENCOUNTER 2017-12-01 04:03 | Inpatient (IN) | payer MEDICARE, BC ==
[2017-12-01 04:58] LABS: Basophils # (A) 0.1 k/uL (0-0.2); Basophils % (A) 1 %; Eosinophils # (A) 0.3 k/uL (0-0.7); Eosinophils % (A) 2 %; HCT 43.4 % (39.0-53.0); HGB 12.9 gm/dL (13.0-17.5); Hypochromasia Moderate; Lymphocytes % (A) 8 %; MCH 25.1 pg (25.0-35.0); MCHC 29.8 g/dL (31.0-37.0); MCV 84.2 fL (80.0-100.0); Mean Platelet Volume 7.2; Monocytes # (A) 1.1 k/uL (0-1.0); Monocytes % (A) 9 %; Neutrophils # (A) 9.6 k/uL (1.3-7.7); Neutrophils % (A) 78 %; Platelet Count 215 k/uL (150-450); RBC 5.15 m/uL (4.30-5.90); RDW 14.6 % (11.5-15.5); WBC 12.3 k/uL (3.8-10.6)
--- NOTE | 2017-12-01 05:00 | XR ---
EXAMINATION TYPE: XR chest 2V DATE OF EXAM: 12/01/2017 COMPARISON: 11/24/2016 HISTORY: Short of breath TECHNIQUE: Frontal and lateral views of the chest are obtained. FINDINGS: There is no heart failure nor confluent pneumonic infiltrate. Costophrenic angles are marina r. There is left axillary pacemaker with the lead tip over the right ventricle. There are sternal wir es. IMPRESSION: No active cardiopulmonary disease. No change.
[2017-12-01 05:05] LABS: INR 2.9 (<1.2); Partial Thromboplastin Time 33.9 sec (22.0-30.0); Prothrombin Time 26.1 sec (9.0-12.0)
[2017-12-01 05:08] LABS: Albumin 4.3 g/dL (3.5-5.0); Potassium 4.4 mmol/L (3.5-5.1); Total Bilirubin 1.2 mg/dL (0.2-1.3)
[2017-12-01] MEDS ORDERED: FUROSEMIDE 10 MG/ML 4 ML VIAL IV STA (05:47)
[2017-12-01] MEDS ORDERED: IPRATROPIUM-ALBUTEROL 3 ML NEB INHALATION STA (05:47)
[2017-12-01] MEDS ORDERED: FUROSEMIDE 10 MG/ML 4 ML VIAL IV SCH (06:00)
--- NOTE | 2017-12-01 07:28 | ED ---
General Adult HPI - General Chief complaint: Shortness of Breath Stated complaint: Coughing nonstop Time Seen by Provider: 12/01/17 04:30 Source: patient Mode of arrival: ambulatory Limitations: no limitations - History of Present Illness Initial comments: Margarito is a 72-year-old male with past medical history as listed below who presents to the emergency department today for evaluation of a nonproductive cough. Patient reports that he has been in his usual state of health, hasn't been experiencing any runny stuffy nose, congestion or ear pressure. He reports that 2 weeks ago he was evaluated by cardiology at [facility] and was told that he was in good health. Patient reports that 2 days ago he developed a nonproductive cough. He reports feeling as though there is fluid in his lungs that he cannot cough up. He has tried taking [id number] cough medications with no improvement in his cough. He denies any associated fevers, chills, nausea, vomiting. He denies any chest pain or palpitations. He does have a history of A. fib but has a ventricular pacemaker and has been told by his helpdesk technician that though he remains in chronic A. fib his ventricles are paced. Patient is not certain if he has a history of congestive heart failure, he believes he was admitted for congestive heart failure one time multiple years ago but is uncertain if he currently has heart failure. He is uncertain what his most recent echo revealed or what his ejection fraction is. He does report that he is on a water pill as well as Lopressor and a statin he is not certain if he is on an RONALD inhibitor. The bedside states that Margarito has had this nonproductive cough for a day and a half. She is given him [id number] Delsym with no improvement in his cough. - Related Data Home Medications Medication Instructions Recorded Confirmed Aspirin [Adult Low Dose Aspirin EC] 81 mg PO DAILY 03/16/16 11/24/16 Furosemide [Lasix] 40 mg PO DAILY@0800 03/16/16 11/25/16 Metoprolol Tartrate [Lopressor] 50 mg PO BID 03/16/16 11/24/16 Omeprazole 20 mg PO DAILY 03/16/16 11/24/16 Pravastatin Sodium [Pravachol] 80 mg PO HS 03/16/16 11/24/16 Warfarin [Coumadin] 3.75 mg PO SUWEFR@1800 03/16/16 11/25/16 amLODIPine [Norvasc] 5 mg PO DAILY 03/16/16 11/25/16 Multivitamins, Thera [Multivitamin 1 tab PO DAILY 11/24/16 11/24/16 (formulary)] Vit C/E/Zn/Coppr/Lutein/Zeaxan 1 cap PO DAILY 11/24/16 11/24/16 [Preservision Areds 2 Softgel] Furosemide [Lasix] 20 mg PO DAILY@1700 11/25/16 11/25/16 Losartan [Cozaar] 25 mg PO DAILY 11/25/16 11/25/16 Meclizine [Antivert] 25 mg PO DAILY PRN 11/25/16 11/25/16 Warfarin Sodium 7.5 mg PO MOTUTHSA@1800 11/25/16 11/25/16 Previous Rx's Medication Instructions Recorded Hydrocodone/Acetaminophen [[place] 1 each PO Q6HR PRN #20 tab 02/10/17 5-325] Allergies Allergy/AdvReac Type Severity Reaction Status Date / Time atorvastatin [From Lipitor] Allergy Rash/Hives Verified 12/01/17 04:11 clindamycin Allergy Rash/Hives Verified 12/01/17 04:11 Iodinated Contrast- Oral and Allergy Anaphylaxis Verified 12/01/17 04:11 IV Dye promethazine [From Phenergan] Allergy Confusion Verified 12/01/17 04:11 sulfamethoxazole Allergy Rash/Hives Verified 12/01/17 04:11 [From Bactrim] trimethoprim [From Bactrim] Allergy Rash/Hives Verified 12/01/17 04:11 Review of Systems ROS Statement: Those systems with pertinent positive or pertinent negative responses have been documented in the HPI. ROS Other: All systems not noted in ROS Statement are negative. Past Medical History Past Medical History: Atrial Fibrillation, Coronary Artery Disease (CAD), Cancer , Diabetes Mellitus, Eye Disorder, Hyperlipidemia, Hypertension, Myocardial Infarction ([place]), Sleep Apnea/CPAP/BIPAP Additional Past Medical History / Comment(s): [place]- 1968 and 2004. diet control diabetic, bladder cancer, legally blind Last Myocardial Infarction Date:: 2004 History of Any Multi-Drug Resistant Organisms: None Reported Past Surgical History: AICD, Appendectomy, Back Surgery, Cholecystectomy, Coronary Bypass/CABG, Heart Catheterization With Stent, Hernia Repair, Joint Replacement Additional Past Surgical History / Comment(s): left hip replacement x 3, back x 5, CABG x 2(1974 and 2004), 18 heart catheterizations, 2-3 stents, bi V pacemaker, right shoulder sx Past Anesthesia/Blood Transfusion Reactions: Motion Sickness, Postoperative Nausea & Vomiting (PONV) Date of Last Stent Placement:: 2006 Type of Cardiac Device: AICD Device Placement Date:: 2012 Past Psychological History: No Psychological Hx Reported Smoking Status: Never smoker Past Alcohol Use History: None Reported Past Drug Use History: None Reported - Past Family History Mother Family Medical History: No Reported History General Exam - General Exam Comments Initial Comments: GENERAL: Patient is well-developed and well-nourished. Patient is nontoxic and well- hydrated and is in no distress. HENT: Normocephalic, Atraumatic. EYES: Pupils equal round reactive to light Legally blind PULMONARY: Crackles in the bilateral lung bush CARDIOVASCULAR: Regular rate and rhythm with a systolic murmur ABDOMEN: Soft and nontender with normal bowel sounds. SKIN: Skin is clear with no lesions or rashes and otherwise unremarkable. NEUROLOGIC: Patient is alert and oriented x3. Cranial nerves II through XII are grossly intact. Motor and sensory are also intact. Normal speech, volume and content. Symmetrical smile. MUSCULOSKELETAL: Normal extremities with adequate strength and full range of motion. No lower extremity swelling or edema. No calf tenderness. No lower extremity edema LYMPHATICS: No significant lymphadenopathy is noted PSYCHIATRIC: Normal psychiatric evaluation. Limitations: no limitations Limitations: no limitations Course Vital Signs 12/01/17 12/01/17 12/01/17 04:07 06:09 06:14 Temperature 98.1 F Pulse Rate 86 75 66 Respiratory 20 16 Rate Blood Pressure 120/70 129/75 O2 Sat by Pulse 99 97 Oximetry 12/01/17 12/01/17 06:24 06:31 Temperature Pulse Rate 71 69 Respiratory 16 Rate Blood Pressure 126/69 O2 Sat by Pulse 100 Oximetry EKG Findings - EKG Comments: EKG Findings:: EKG obtained at 4:24 AM - rate is 87 this is a ventricularly paced rhythm no acute ST elevations or depressions. Significant respiratory artifact. No evidence of acute ischemia or infarction. Medical Decision Making - Medical Decision Making Patient was seen and evaluated history was obtained from the patient and cardiovascular workup was ordered Chest x-ray was read as normal however there does appear to be fluid overload as well as fluid layering in the fissure Labs consistent with a CHF exacerbation, troponin mildly elevated, patient is chest pain-free, we will monitor this troponin We'll plan to admit the patient for CHF exacerbation and elevated troponin With the patient and at bedside IV Lasix was ordered for treatment of CHF exacerbation Admission orders were placed Consult cardiology was placed Patient care was discussed with Dr. roque of the [facility] hospitalist group who agrees with plan for admission for CHF exacerbation a mildly elevated troponin. - Lab Data Result diagrams: 12/01/17 04:22 12/01/17 04:22 Lab Results 12/01/17 12/01/17 12/01/17 Range/Units 04:22 04:22 04:22 WBC 12.3 H (3.8-10.6) k/uL RBC 5.15 (4.30-5.90) m/uL Hgb 12.9 L (13.0-17.5) gm/dL Hct 43.4 (39.0-53.0) % MCV 84.2 (80.0-100.0) fL MCH 25.1 (25.0-35.0) pg MCHC 29.8 L (31.0-37.0) g/dL RDW 14.6 (11.5-15.5) % Plt Count 215 (150-450) k/uL Neutrophils % 78 % Lymphocytes % 8 % Monocytes % 9 % Eosinophils % 2 % Basophils % 1 % Neutrophils # 9.6 H (1.3-7.7) k/uL Lymphocytes # 1.0 (1.0-4.8) k/uL Monocytes # 1.1 H (0-1.0) k/uL Eosinophils # 0.3 (0-0.7) k/uL Basophils # 0.1 (0-0.2) k/uL Hypochromasia Moderate PT (9.0-12.0) sec INR (<1.2) APTT (22.0-30.0) sec Sodium 137 (137-145) mmol/L Potassium 4.4 (3.5-5.1) mmol/L Chloride 100 (98-107) mmol/L Carbon Dioxide 25 (22-30) mmol/L Anion Gap 12 mmol/L BUN 26 H (9-20) mg/dL Creatinine 1.16 (0.66-1.25) mg/dL Est GFR (CKD-EPI)AfAm 73 (>60 ml/min/1.73 sqM) Est GFR (CKD-EPI)NonAf 63 (>60 ml/min/1.73 sqM) Glucose 148 H (74-99) mg/dL Calcium 9.0 (8.4-10.2) mg/dL Total Bilirubin 1.2 (0.2-1.3) mg/dL AST 27 (17-59) U/L ALT 32 (21-72) U/L Alkaline Phosphatase 99 (38-126) U/L Troponin I (0.000-0.034) ng/mL NT-Pro-B Natriuret Pep 3480 pg/mL Total Protein 7.0 (6.3-8.2) g/dL Albumin 4.3 (3.5-5.0) g/dL 12/01/17 12/01/17 Range/Units 04:22 04:22 WBC (3.8-10.6) k/uL RBC (4.30-5.90) m/uL Hgb (13.0-17.5) gm/dL Hct (39.0-53.0) % MCV (80.0-100.0) fL MCH (25.0-35.0) pg MCHC (31.0-37.0) g/dL RDW (11.5-15.5) % Plt Count (150-450) k/uL Neutrophils % % Lymphocytes % % Monocytes % % Eosinophils % % Basophils % % Neutrophils # (1.3-7.7) k/uL Lymphocytes # (1.0-4.8) k/uL Monocytes # (0-1.0) k/uL Eosinophils # (0-0.7) k/uL Basophils # (0-0.2) k/uL Hypochromasia PT 26.1 H (9.0-12.0) sec INR 2.9 H (<1.2) APTT 33.9 H (22.0-30.0) sec Sodium (137-145) mmol/L Potassium (3.5-5.1) mmol/L Chloride (98-107) mmol/L Carbon Dioxide (22-30) mmol/L Anion Gap mmol/L BUN (9-20) mg/dL Creatinine (0.66-1.25) mg/dL Est GFR (CKD-EPI)AfAm (>60 ml/min/1.73 sqM) Est GFR (CKD-EPI)NonAf (>60 ml/min/1.73 sqM) Glucose (74-99) mg/dL Calcium (8.4-10.2) mg/dL Total Bilirubin (0.2-1.3) mg/dL AST (17-59) U/L ALT (21-72) U/L Alkaline Phosphatase (38-126) U/L Troponin I 0.067 H* (0.000-0.034) ng/mL NT-Pro-B Natriuret Pep pg/mL Total Protein (6.3-8.2) g/dL Albumin (3.5-5.0) g/dL Disposition Clinical Impression: Congestive heart failure, Acute pulmonary edema, Elevated troponin Disposition: ADMITTED IP TO THIS HOSP
[2017-12-01 07:47] VITALS: BMI 29.5
[2017-12-01] MEDS: amLODIPine 5 MG TAB PO SCH (08:00)
[2017-12-01] MEDS: METOPROLOL TARTRATE 50 MG TAB PO SCH ×2 (09:15→21:13)
[2017-12-01] MEDS: ASPIRIN 81 MG PO SCH (09:16)
--- NOTE | 2017-12-01 11:28 | CONS ---
CONSULTATION CHIEF COMPLAINT: Cough and shortness of breath. Margarito is a 72-year-old gentleman with rather complex cardiac history including coronary artery disease, status post CABG, hypertrophic cardiomyopathy status post septal myectomy, paroxysmal atrial fibrillation status post single-chamber AICD, who presented to hospital complaining of shortness of breath and cough. He has been coughing for the last 2 days. It is not productive. He also has shortness of breath that is mild to moderate intensity, at rest. At the time of my evaluation this morning, he appears comfortable but he is still coughing. Does not have any leg edema. LABS: Show that the INR is therapeutic at 2.9. BNP is elevated at 3480. Troponin is in the christine zone at 0.067. PAST MEDICAL HISTORY: Significant for coronary artery disease, status post CABG, hypertrophic obstructive cardiomyopathy status post septal myectomy, status post AICD, paroxysmal atrial fibrillation, diabetes. MEDICATIONS: At home include Coumadin, Cozaar, Lasix, Pravachol, Antivert, aspirin, Lopressor, and amiodarone. ALLERGIES: He is allergic to multiple drugs including LIPITOR, CLINDAMYCIN, IV DYE, PHENERGAN, BACTRIM. FAMILY HISTORY: Negative for premature coronary artery disease. SOCIAL HISTORY: Negative for current smoking, EtOH abuse, or drug abuse. REVIEW OF SYSTEMS: HEENT is unremarkable. CARDIAC: As described above. RESPIRATORY: As described above. GI: Negative. GENITOURINARY: Negative. ALLERGY/IMMUNOLOGY: Negative. SKIN: Negative. MUSCULOSKELETAL: Significant for arthritis. PSYCHOSOCIAL: Negative. ENDOCRINE: Negative. DERM: Negative. CONSTITUTIONAL: Negative. ONCOLOGICAL: Negative. Rest of the system review is not relevant. PHYSICAL EXAM: Afebrile, heart rate is 70 beats per minute. Blood pressure is 140/80, respiratory rate is 18, O2 sat is 98% on room air. There is no jugular venous distention. Carotid upstroke is normal. There is no bruit. Chest exam reveals occasional crackles bilaterally. Heart exam reveals first and second heart sounds and ejection systolic murmur in the aortic area. Abdomen is soft. Exam of extremities did not reveal any edema. LABS: Show that the troponin is 0.067. BNP is elevated. INR is 2.9, hemoglobin is 12.9. EKG shows paced rhythm. Chest x-ray is negative for congestion. ASSESSMENT: 1. Acute exacerbation of chronic diastolic heart failure. 2. Coronary artery disease, status post coronary artery bypass grafting with mild troponin elevation. 3. Paroxysmal atrial fibrillation. 4. Hypertrophic obstructive cardiomyopathy, status post myectomy. PLAN: Will treat the patient with IV diuretics. Resume the Coumadin, continue the beta nuno. Resume the Cozaar and the amiodarone. Hopefully patient we can optimize his therapy for the next few days and discharge him home. He had an echo last year that showed normal LV function with mild aortic stenosis. MMODL / IJN: [id number] /
[2017-12-01] MEDS: ONDANSETRON 4 MG/2 ML VIAL IVP PRN ×2 (11:34→17:12)
--- NOTE | 2017-12-01 12:33 | ECHOF ---
Referral Reason:chf MEASUREMENTS -------- HEIGHT: 175.3 cm WEIGHT: 90.3 kg BP: 141/83 RVIDd: 3.7 cm (< 3.3) IVSd: 1.4 cm (0.6 - 1.1) LVIDd: 5.1 cm (3.9 - 5.3) LVPWd: 1.5 cm (0.6 - 1.1) IVSs: 2.0 cm LVIDs: 4.4 cm LVPWs: 1.9 cm LA Diam: 4.2 cm (2.7 - 3.8) LAESV Index (A-L): 49.55 ml/m Ao Diam: 3.6 cm (2.0 - 3.7) AV Cusp: 1.7 cm (1.5 - 2.6) MV EXCURSION: 12.842 mm (> 18.000) MV EF SLOPE: 49 mm/s (70 - 150) EPSS: 1.6 cm MV E Rene: 1.73 m/s MV DecT: 214 ms MV A Rene: 0.51 m/s MV E/A Ratio: 3.41 AV maxP.78 mmHg AV meanP.74 mmHg RAP: 15.00 mmHg RVSP: 43.54 mmHg FINDINGS -------- Paced rhythm. This was a technically adequate study. The left ventricular size is normal. There is moderate concentric left ventricular hypertrophy. O verall left ventricular systolic function is moderately impaired with, an EF between 35 - 40 %. The right ventricle is mild to moderately enlarged. LA is severely dilated >40 ml/m2 The right atrium is normal in size. There is mild aortic valve sclerosis. There is mild aortic stenosis present. Peak/mean gradient a cross the Aortic Valve is 14.78mmHg / 6.74mmHg. The mitral valve leaflets are moderately thickened. Severe mitral annular calcification present. Mild mitral regurgitation is present. Mild tricuspid regurgitation present. There is mild pulmonary hypertension. The right ventricular systolic pressure, as measured by Doppler, is 43.54mmHg. Trace/mild (physiologic) pulmonic regurgitation. The aortic root size is normal. The inferior vena cava is dilated with no significant inspiratory collapse which is consistent estima frank right atrial pressure of >15 mmHg. There is no pericardial effusion. CONCLUSIONS -------- 1. Paced rhythm. 2. This was a technically adequate study. 3. The left ventricular size is normal. 4. There is moderate concentric left ventricular hypertrophy. 5. Overall left ventricular systolic function is moderately impaired with, an EF between 35 - 40 %. 6. The right ventricle is mild to moderately enlarged. 7. LA is severely dilated >40 ml/m2 8. The right atrium is normal in size. 9. There is mild aortic valve sclerosis. 10. There is mild aortic stenosis present. 11. Peak/mean gradient across the Aortic Valve is 14.78mmHg / 6.74mmHg. 12. The mitral valve leaflets are moderately thickened. 13. Severe mitral annular calcification present. 14. Mild mitral regurgitation is present. 15. Mild tricuspid regurgitation present. 16. There is mild pulmonary hypertension. 17. The right ventricular systolic pressure, as measured by Doppler, is 43.54mmHg. 18. Trace/mild (physiologic) pulmonic regurgitation. 19. The aortic root size is normal. 20. The inferior vena cava is dilated with no significant inspiratory collapse which is consistent es timated right atrial pressure of >15 mmHg. 21. There is no pericardial effusion. [facility] PROGRAM DIRECTOR: Rozina Thompson RDCS
[2017-12-01] MEDS: LOSARTAN 25 MG TAB PO SCH (12:55)
[2017-12-01] MEDS ORDERED: MECLIZINE 25 MG TAB PO PRN (13:16)
[2017-12-01] MEDS ORDERED: MELATONIN 3 MG TABLET PO PRN (13:17)
[2017-12-01] MEDS ORDERED: ACETAMINOPHEN TAB 500 MG TAB PO PRN (13:17)
[2017-12-01] MEDS ORDERED: ALPRAZolam 0.25 MG TAB PO PRN (13:17)
[2017-12-01] MEDS: AMIODARONE 200 MG TAB PO SCH (13:54)
[2017-12-01] MEDS: FUROSEMIDE 10 MG/ML 4 ML VIAL IV SCH ×2 (13:55→21:13)
[2017-12-01] MEDS ORDERED: IPRATROPIUM-ALBUTEROL 3 ML NEB INHALATION PRN (15:58)
[2017-12-01 16:53] LABS: Glucose,Whole Blood 142 mg/dL (75-99)
[2017-12-01] MEDS: methylPREDNISolone SOD SUCCI 125 MG/2 ML VIAL IV SCH (16:59)
[2017-12-01] MEDS: INSULIN ASPART 100 UNIT/ML 1 ML 10 ML VIAL SQ SCH ×2 (17:00→21:13)
--- NOTE | 2017-12-01 17:01 | HP ---
HISTORY AND PHYSICAL DATE OF SERVICE: 12/01/2017 CHIEF COMPLAINT: Shortness of breath and cough. HISTORY OF PRESENT ILLNESS: This is a 72-year-old gentleman with a past medical history of multiple complex medical issues including atrial fibrillation, CAD, history of diabetes mellitus type 2, history of hypertension, myocardial infraction, sleep apnea, history of AICD, history of CAD, CABG being followed by Dr. Gil in the outpatient setting. Also had hypertrophic cardiomyopathy. Patient underwent septal myectomy previously. The patient admitted with multiple symptomatology recently and subsequently transferred to [facility] for further evaluation. The workup was apparently negative and the patient came home, but the patient is complaining of cough for the past several weeks with the lack of improvement. The patient came to [facility] last night and admitted for further evaluation and treatment. The BNP was elevated. The chest x-ray was personally reviewed by me which showed some increased bronchovascular markings and the patient admitted for further evaluation and treatment. There is no history of any fever or rigors. No history of headache, loss of consciousness or seizures. The patient is complaining of mucopurulent sputum as mentioned earlier. PAST MEDICAL HISTORY: History of cardiomyopathy, history of AICD, history of atrial fibrillation, diabetes mellitus type 2, hypertension, hyperlipidemia, history of myocardial infarction, history of CAD, CABG. MEDICATIONS: Prior to admission include home medications are: 1. Coumadin 3.75 mg Sunday, Sunday, Sunday, , Sunday and 7.5 on Sunday, Sunday. 2. Vitamin C 1 p.o. daily. 3. Pravachol 80 mg q.h.s. 4. Lopressor 20 mg p.o. daily. 5. Lopressor 50 mg p.o. b.i.d. 6. Antivert 25 mg p.o. daily. 7. Cozaar 25 mg p.o. daily. 8. Lasix 40 mg p.o. daily. 9. Aspirin 81 mg p.o. daily. 10.Cordarone 200 mg p.o. daily. ALLERGIES: Are LIPITOR and CLINDAMYCIN, IODINATE CONTRAST, PROMETHAZINE and BACTRIM. FAMILY HISTORY: No history of heart disease or strokes in the family. SOCIAL HISTORY: Patient is retired from [employer], no history of smoking, no history of alcohol intake. Patient was exposed to smoke during teenage years. REVIEW OF SYSTEMS: ENT: No diminished hearing or diminished vision. CARDIOVASCULAR SYSTEM: As mentioned earlier. GI: No nausea. : No dysuria. NERVOUS SYSTEM: No numbness or weakness. ALLERGY/IMMUNOLOGY: No asthma or hayfever. MUSCULOSKELETAL: As mentioned earlier. HEMATOLOGY: No history of anemia. ENDOCRINE: No history of diabetes or hypothyroidism. CONSTITUTIONAL: As mentioned earlier. DERMATOLOGY: Negative. RHEUMATOLOGY: Negative. PSYCHIATRY: As mentioned earlier. PHYSICAL EXAMINATION: Patient is alert and oriented x3, pulse 78, blood pressure 131/71, respirations 16, temperature 99.9, pulse ox 94% on room air. HEENT: Conjunctivae normal. Oral mucosa moist. Neck is no jugular venous distention. No carotid bruit, no lymph node enlargement. CARDIOVASCULAR SYSTEM: S1, S2, muffled, no S3, no S4. Ejection murmur noted. RESPIRATION: Breath sounds diminished at the bases, bilateral scattered rhonchi, expiratory wheezing and no crackles. Abdomen is soft, obese, nontender. No mass palpable. LEGS: No edema, no swelling. NERVOUS SYSTEM: Higher functions as mentioned earlier. moves all 4 limbs, no focal motor deficits. LYMPHATICS: No lymph node enlargement in the neck or axillae. SKIN: No ulcer, rash, bleeding. LABS: At this time shows WBC 12.3, hemoglobin is 12.9, and INR is 2.9, PTT is 26.1, glucose 148, troponin 0.061, 0.662. Influenza negative. ASSESSMENT: 1. Shortness of breath, possibly multifactorial, congestive heart failure acute exacerbation with acute on chronic systolic and diastolic heart failure with ejection fraction 35%-40%. 2. Possible asthmatic bronchitis and acute purulent tracheobronchitis. 3. Troponin 0.662, indeterminate. 4. Coumadin monitoring. 5. Increased WBC. 6. History of atrial fibrillation. 7. History of AICD. 8. History of hypertrophic cardiomyopathy and status post septal myectomy. 9. Mitral regurgitation. 10.Diabetes mellitus type 2. 11.Hypertension. 12.Hyperlipidemia. 13.History of myocardial infraction. 14.History of sleep apnea. 15.Diet-controlled diabetes mellitus type 2. 16.History of back surgery, degenerative joint disease. RECOMMENDATION: In this 72-year-old gentleman who presented with multiple complicated medical issues, will monitor the patient closely, continue with the current management and symptomatic treatment. I recommend bronchodilators, antibiotics, continue with diuretics. Otherwise, closely follow with Cardiology and Pulmonology. Guarded prognosis because of multiple complex medical issues. Further recommendations to follow. See orders for details. A copy of this dictation will be forwarded to Dr. Gil who is the primary physician. Will obtain the cultures as well. MMODL / IJN: [id number] /
[2017-12-01] MEDS: IPRATROPIUM-ALBUTEROL 3 ML NEB INHALATION SCH ×2 (17:13→20:28)
[2017-12-01 17:28] LABS: Appearance,Urine Clear (Clear); Bilirubin,Urine Negative (Negative); Blood,Urine Trace (Negative); Color,Urine Light Yellow; Glucose,Urine (UA) Negative (Negative); Hyaline Casts,Urine 5 /lpf (0-2); Ketones,Urine Negative (Negative); Leukocyte Esterase,Urine Negative (Negative); Mucus,Urine Rare /hpf; Nitrite,Urine Negative (Negative); Protein,Urine Negative (Negative); RBC,Urine <1 /hpf (0-5); Specific Gravity,Urine 1.009 (1.001-1.035); Urobilinogen,Urine <2.0 mg/dL (<2.0); WBC,Urine 1 /hpf (0-5)
[2017-12-01] MEDS ORDERED: WARFARIN 5 MG TAB PO SCH (18:00)
[2017-12-01] MEDS: SYMBICORT 160-4.5 MCG INHALER INHALATION SCH (20:28)
[2017-12-01 20:36] LABS: Glucose,Whole Blood 132 mg/dL (75-99)
[2017-12-01] MEDS ORDERED: PRAVASTATIN SODIUM 80 MG TAB PO SCH (21:00)
[2017-12-01 23:13] LABS: Hemoglobin A1C 6.2 % (4.0-6.0)
[2017-12-02] MEDS: methylPREDNISolone SOD SUCCI 125 MG/2 ML VIAL IV SCH ×2 (01:08→06:15)
[2017-12-02 04:09] VITALS: RESP 16
[2017-12-02] MEDS: FUROSEMIDE 10 MG/ML 4 ML VIAL IV SCH (06:15)
[2017-12-02 06:22] LABS: Glucose,Whole Blood 147 mg/dL (75-99)
[2017-12-02 06:33] LABS: Basophils % (A) 0 %; Eosinophils % (A) 0 %; HCT 40.1 % (39.0-53.0); Hypochromasia Slight; Lymphocytes # (A) 0.5 k/uL (1.0-4.8); Lymphocytes % (A) 3 %; MCH 24.9 pg (25.0-35.0); Monocytes # (A) 0.3 k/uL (0-1.0); Monocytes % (A) 2 %; Neutrophils # (A) 14.6 k/uL (1.3-7.7); Neutrophils % (A) 94 %; Platelet Count 180 k/uL (150-450); RBC 4.84 m/uL (4.30-5.90); RDW 14.8 % (11.5-15.5); WBC 15.4 k/uL (3.8-10.6)
[2017-12-02] MEDS: INSULIN ASPART 100 UNIT/ML 1 ML 10 ML VIAL SQ SCH ×2 (06:35→12:06)
[2017-12-02 06:38] LABS: INR 2.7 (<1.2); Prothrombin Time 23.9 sec (9.0-12.0)
[2017-12-02 06:51] LABS: Calcium 8.6 mg/dL (8.4-10.2)
[2017-12-02] MEDS ORDERED: PANTOPRAZOLE 40 MG TABLET PO SCH (07:30)
[2017-12-02] MEDS: amLODIPine 5 MG TAB PO SCH (07:42)
[2017-12-02] MEDS: AMIODARONE 200 MG TAB PO SCH (07:43)
[2017-12-02] MEDS: ASPIRIN 81 MG PO SCH (07:43)
[2017-12-02] MEDS: LOSARTAN 25 MG TAB PO SCH (07:43)
[2017-12-02] MEDS: METOPROLOL TARTRATE 50 MG TAB PO SCH (07:43)
[2017-12-02 08:11] VITALS: TEMP 96.4
[2017-12-02] MEDS: IPRATROPIUM-ALBUTEROL 3 ML NEB INHALATION SCH (08:42)
[2017-12-02] MEDS: SYMBICORT 160-4.5 MCG INHALER INHALATION SCH (08:42)
[2017-12-02] MEDS ORDERED: VIT A,C & E-LUTEIN-MINERALS 1 EACH TAB PO SCH (09:00)
[2017-12-02] MEDS ORDERED: PANTOPRAZOLE 40 MG/10 ML VIAL IVP SCH (09:00)
[2017-12-02] MEDS ORDERED: NON-FORMULARY DRUG (Omeprazole [Omeprazole] 20 MG) PO SCH (09:00)
--- NOTE | 2017-12-02 11:39 | P.PN ---
Subjective Progress Note Date: 12/02/17 Principal diagnosis: Acute on chronic systolic CHF This is a pleasant 72-year-old gentleman who follows with Dr. REBA Tsang in the office. He has a history of CAD, status post CABG, hypertrophic cardiomyopathy status post septal myectomy, paroxysmal atrial fibrillations and is status post biventricular ICD which was done at [facility]. He presented to the hospital with complaints of shortness of breath and cough as well as significant weight gain overnight. He's been diuresed and IV Lasix 40 mg every 8 hours. Echocardiogram showed an ejection fraction of 35-40% which is chronic. Labs this morning showed a BUN of 30 and creatinine 1.3 to. Upon examination, patient is sitting in a chair. He is feels his breathing is quite a bit better. Denies complaints of orthopnea. Objective - Vital Signs Vital signs: Vital Signs Temp 96.4 F L 12/02/17 08:00 Pulse 72 12/02/17 08:00 Resp 16 12/02/17 08:00 BP 109/59 12/02/17 08:00 Pulse Ox 98 12/02/17 08:00 Intake & Output 12/01/17 12/02/17 12/02/17 18:59 06:59 18:59 Intake Total 240 400 Output Total 710 1075 Balance -470 -1075 400 Weight 90.71 kg 89 kg Intake: Oral 240 400 Output: Urine 710 1075 - Exam PHYSICAL EXAMINATION: HEENT: Head is atraumatic, normocephalic. Pupils equal, round. Neck is supple. There is no elevated jugular venous pressure. HEART EXAMINATION: Heart sounds regular, S1 and S2 with systolic ejection murmur at the base. CHEST EXAMINATION: Lungs are clear to auscultation and precussion. No chest wall tenderness is noted on palpation or with deep breathing. ABDOMEN: Soft, nontender. Bowel sounds are heard. No organomegaly noted. EXTREMITIES: 2+ peripheral pulses with no evidence of peripheral edema and no calf tenderness noted. NEUROLOGIC patient is awake, alert and oriented x3. . - Labs CBC & Chem 7: 12/02/17 05:59 12/02/17 05:59 Labs: Abnormal Lab Results - Last 24 Hours (Table) 12/01/17 12/01/17 12/01/17 Range/Units 11:21 16:52 17:06 WBC (3.8-10.6) k/uL Hgb (13.0-17.5) gm/dL MCH (25.0-35.0) pg MCHC (31.0-37.0) g/dL Neutrophils # (1.3-7.7) k/uL Lymphocytes # (1.0-4.8) k/uL PT (9.0-12.0) sec INR (<1.2) Chloride (98-107) mmol/L BUN (9-20) mg/dL Creatinine (0.66-1.25) mg/dL Glucose (74-99) mg/dL POC Glucose (mg/dL) 142 H (75-99) mg/dL Hemoglobin A1c (4.0-6.0) % Troponin I 0.062 H* (0.000-0.034) ng/mL Urine Blood Trace H (Negative) Hyaline Casts 5 H (0-2) /lpf Urine Mucus Rare H (None) /hpf 12/01/17 12/01/17 12/01/17 Range/Units 18:30 18:30 20:34 WBC (3.8-10.6) k/uL Hgb (13.0-17.5) gm/dL MCH (25.0-35.0) pg MCHC (31.0-37.0) g/dL Neutrophils # (1.3-7.7) k/uL Lymphocytes # (1.0-4.8) k/uL PT (9.0-12.0) sec INR (<1.2) Chloride (98-107) mmol/L BUN (9-20) mg/dL Creatinine (0.66-1.25) mg/dL Glucose (74-99) mg/dL POC Glucose (mg/dL) 132 H (75-99) mg/dL Hemoglobin A1c 6.2 H (4.0-6.0) % Troponin I 0.080 H* (0.000-0.034) ng/mL Urine Blood (Negative) Hyaline Casts (0-2) /lpf Urine Mucus (None) /hpf 12/02/17 12/02/17 12/02/17 Range/Units 05:59 05:59 05:59 WBC 15.4 H (3.8-10.6) k/uL Hgb 12.0 L (13.0-17.5) gm/dL MCH 24.9 L (25.0-35.0) pg MCHC 30.0 L (31.0-37.0) g/dL Neutrophils # 14.6 H (1.3-7.7) k/uL Lymphocytes # 0.5 L (1.0-4.8) k/uL PT 23.9 H (9.0-12.0) sec INR 2.7 H (<1.2) Chloride 97 L (98-107) mmol/L BUN 30 H (9-20) mg/dL Creatinine 1.32 H (0.66-1.25) mg/dL Glucose 144 H (74-99) mg/dL POC Glucose (mg/dL) (75-99) mg/dL Hemoglobin A1c (4.0-6.0) % Troponin I (0.000-0.034) ng/mL Urine Blood (Negative) Hyaline Casts (0-2) /lpf Urine Mucus (None) /hpf 12/02/17 Range/Units 06:20 WBC (3.8-10.6) k/uL Hgb (13.0-17.5) gm/dL MCH (25.0-35.0) pg MCHC (31.0-37.0) g/dL Neutrophils # (1.3-7.7) k/uL Lymphocytes # (1.0-4.8) k/uL PT (9.0-12.0) sec INR (<1.2) Chloride (98-107) mmol/L BUN (9-20) mg/dL Creatinine (0.66-1.25) mg/dL Glucose (74-99) mg/dL POC Glucose (mg/dL) 147 H (75-99) mg/dL Hemoglobin A1c (4.0-6.0) % Troponin I (0.000-0.034) ng/mL Urine Blood (Negative) Hyaline Casts (0-2) /lpf Urine Mucus (None) /hpf Microbiology - Last 24 Hours (Table) 12/01/17 17:35 Gram Stain - Preliminary Sputum Sputum Culture - Preliminary 12/01/17 17:06 Urine Culture - Preliminary Urine,Voided Assessment and Plan Assessment: #1 acute on chronic systolic congestive heart failure with ejection fraction of 35-40% #2 coronary artery disease, status post coronary artery bypass grafting #3 paroxysmal atrial fibrillation #4 hypertrophic obstructive cardiomyopathy, status post myectomy Plan: From cardiology perspective, we will continue IV Lasix. Continue beta nuno, Cozaar and amiodarone. Continue to optimize medical therapy. Follow BUN and creatinine as well as electrolytes and daily weights. Further recommendations to follow. The above dictated assessment and findings were discussed with signing physician. The impression and plan of care have been directed as dictated. Margie Palmer, Nurse Practitioner, acting as scribe for signing physician.
[2017-12-02 11:49] LABS: Glucose,Whole Blood 182 mg/dL (75-99)
--- NOTE | 2017-12-02 11:54 | P.CNPUL ---
History of Present Illness Consult date: 12/02/17 Reason for consult: dyspnea, cough Chief complaint: Coughing, shortness of breath History of present illness: This is 72-year-old white male patient who follows at the [facility], who presented to the emergency department on 12/01/2017 at 4:00 in the morning, for evaluation of worsening shortness of breath, and nonstop coughing. Denied any fever or chills, denied any chest pain. Does have some chest congestion, and he is able to bring up some sputum which she could not describe. Patient has a past medical history of chronic atrial fibrillation, BiV pacemaker/AICD, cardiomyopathy, prior episodes of marked myocardial infarction, hypertension, hyperlipidemia, diabetes mellitus, coronary artery disease with previous bypass grafting, and stents. 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 A few days later she developed a nonproductive cough, but like there is fluid in his lungs that he cannot cough up. Ex some [id number] cough medications which did not improve his symptoms. Chest x-ray did not show any active cardiopulmonary disease. EKG showed a paced rhythm, initial blood work showed a PVC of 12.3, hemoglobin of 12.9, INR 2.9, electrolytes were within normal limits, BUN is 26, creatinine is 1.16. Patient had elevation of his troponins of 0.067, 0.062, 0.080, proBNP was 3480. Influenza screen was negative, patient has been afebrile, he is on room air with a pulse ox of 98%, denies any chest pain. Still has a sensation of chest congestion, at times able to bring up some phlegm. In the past he was evaluated in the pulmonary office by Dr. Quiroz, and office PFT showed FEV1 of 70%, with FVC of 75%, Consistent with mild obstruction, patient was tried on Breo Ellipta, with no improvement of his coughing, hence it was discontinued. 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 Patient symptoms were attributed to his underlying heart disease and chronic congestive heart failure. Review of Systems All systems: negative Constitutional: Denies chills, Denies fever Eyes: denies blurred vision, denies pain Ears, nose, mouth and throat: Denies headache, Denies sore throat Cardiovascular: Denies chest pain, Denies shortness of breath Respiratory: Reports cough with sputum, Denies cough Gastrointestinal: Denies abdominal pain, Denies diarrhea, Denies nausea, Denies vomiting Musculoskeletal: Denies myalgias Integumentary: Denies pruritus, Denies rash Neurological: Denies numbness, Denies weakness Psychiatric: Denies anxiety, Denies depression Endocrine: Denies fatigue, Denies weight change Past Medical History Past Medical History: Atrial Fibrillation, Coronary Artery Disease (CAD), Cancer , Diabetes Mellitus, Eye Disorder, Hyperlipidemia, Hypertension, Myocardial Infarction (AR), Sleep Apnea/CPAP/BIPAP Additional Past Medical History / Comment(s): AR- 1968 and 2004. diet control diabetic, bladder cancer, legally blind, macular degeneration Last Myocardial Infarction Date:: 2004 History of Any Multi-Drug Resistant Organisms: None Reported Past Surgical History: AICD, Appendectomy, Back Surgery, Cholecystectomy, Coronary Bypass/CABG, Heart Catheterization With Stent, Hernia Repair, Joint Replacement, Orthopedic Surgery Additional Past Surgical History / Comment(s): left hip replacement x 3, back surgery 6 times, CABG 1974, and CABG 4 vessel - 2004, 18 heart catheterizations , 2-3 stents, biventricular pacemaker, right shoulder sx Past Anesthesia/Blood Transfusion Reactions: Motion Sickness, Postoperative Nausea & Vomiting (PONV) Date of Last Stent Placement:: 2006 Type of Cardiac Device: Biventricular Pacemaker, AICD Device Placement Date:: 2012 Past Psychological History: No Psychological Hx Reported Smoking Status: Never smoker Past Alcohol Use History: None Reported Past Drug Use History: None Reported - Past Family History Mother Family Medical History: No Reported History Medications and Allergies Home Medications Medication Instructions Recorded Confirmed Type Aspirin [Adult Low Dose Aspirin EC] 81 mg PO DAILY 03/16/16 12/01/17 History Metoprolol Tartrate [Lopressor] 50 mg PO BID 03/16/16 12/01/17 History Omeprazole 20 mg PO DAILY 03/16/16 12/01/17 History Pravastatin Sodium [Pravachol] 80 mg PO HS 03/16/16 12/01/17 History Warfarin [Coumadin] 3.75 mg PO SUTUWETHSA@1800 03/16/16 12/01/17 History Vit C/E/Zn/Coppr/Lutein/Zeaxan 1 cap PO DAILY 11/24/16 12/01/17 History [Preservision Areds 2 Softgel] Losartan [Cozaar] 25 mg PO DAILY 11/25/16 12/01/17 History Meclizine [Antivert] 25 mg PO DAILY PRN 11/25/16 12/01/17 History Warfarin Sodium 7.5 mg PO MOFR@1800 11/25/16 12/01/17 History Amiodarone [Cordarone] 200 mg PO DAILY 12/01/17 12/01/17 History Furosemide [Lasix] 40 mg PO DAILY@0800 12/01/17 12/01/17 History Allergies Allergy/AdvReac Type Severity Reaction Status Date / Time atorvastatin [From Lipitor] Allergy Rash/Hives Verified 12/01/17 11:25 clindamycin Allergy Rash/Hives Verified 12/01/17 11:25 Iodinated Contrast- Oral and Allergy Anaphylaxis Verified 12/01/17 11:25 IV Dye promethazine [From Phenergan] Allergy Confusion Verified 12/01/17 11:25 sulfamethoxazole Allergy Rash/Hives Verified 12/01/17 11:25 [From Bactrim] trimethoprim [From Bactrim] Allergy Rash/Hives Verified 12/01/17 11:25 Physical Exam Vitals: Vital Signs Temp Pulse Resp BP Pulse Ox 12/02/17 08:00 96.4 F L 72 16 109/59 98 12/02/17 06:13 104/64 12/02/17 04:06 97.1 F L 67 16 92/54 97 12/02/17 01:05 97.9 F 68 15 88/54 97 12/01/17 21:11 98.9 F 79 16 124/60 96 12/01/17 15:32 99.9 F H 78 16 121/71 95 12/01/17 11:45 98.3 F 76 16 142/83 98 Intake and Output 12/01/17 12/02/17 12/02/17 22:59 06:59 14:59 Intake Total 240 400 Output Total 745 900 Balance -505 -900 400 Intake: Oral 240 400 Output: Urine 745 900 Other: Weight 89 kg GENERAL EXAM: Alert, pleasant 72-year-old white male, comfortable in no apparent distress. HEAD: Normocephalic/atraumatic. EYES: Normal reaction of pupils, equal size. Conjunctiva pink, sclera white. NOSE: Clear with pink turbinates. THROAT: No erythema or exudates. NECK: No masses, no JVD, no thyroid enlargement, no adenopathy. CHEST: No chest wall deformity. Symmetrical expansion. LUNGS: Diminished breath sounds, with no rhonchi, rales or wheezes CVS: Regular rate and rhythm, normal S1 and S2, no gallops, no murmurs, no rubs ABDOMEN: Soft, nontender. No hepatosplenomegaly, normal bowel sounds, no guarding or rigidity. EXTREMITIES: No clubbing, no edema, no cyanosis, 2+ pulses and upper and lower extremities. MUSCULOSKELETAL: Muscle strength and tone normal. SPINE: No scoliosis or deformity SKIN: No rashes CENTRAL NERVOUS SYSTEM: Alert and oriented -3. No focal deficits, tone is normal in all 4 extremities. PSYCHIATRIC: Alert and oriented -3. Appropriate affect. Intact judgment and insight. Results - Laboratory Findings CBC and BMP: 12/02/17 05:59 12/02/17 05:59 PT/INR, D-dimer PT 23.9 sec (9.0-12.0) H 12/02/17 05:59 INR 2.7 (<1.2) H 12/02/17 05:59 Abnormal lab findings: Abnormal Labs 12/01/17 12/01/17 12/01/17 04:22 04:22 04:22 WBC 12.3 H Hgb 12.9 L MCH MCHC 29.8 L Neutrophils # 9.6 H Lymphocytes # Monocytes # 1.1 H PT 26.1 H INR 2.9 H APTT 33.9 H Chloride BUN 26 H Creatinine Glucose 148 H POC Glucose (mg/dL) Hemoglobin A1c Troponin I Urine Blood Hyaline Casts Urine Mucus 12/01/17 12/01/17 12/01/17 04:22 11:21 16:52 WBC Hgb MCH MCHC Neutrophils # Lymphocytes # Monocytes # PT INR APTT Chloride BUN Creatinine Glucose POC Glucose (mg/dL) 142 H Hemoglobin A1c Troponin I 0.067 H* 0.062 H* Urine Blood Hyaline Casts Urine Mucus 12/01/17 12/01/17 12/01/17 17:06 18:30 18:30 WBC Hgb MCH MCHC Neutrophils # Lymphocytes # Monocytes # PT INR APTT Chloride BUN Creatinine Glucose POC Glucose (mg/dL) Hemoglobin A1c 6.2 H Troponin I 0.080 H* Urine Blood Trace H Hyaline Casts 5 H Urine Mucus Rare H 12/01/17 12/02/17 12/02/17 20:34 05:59 05:59 WBC 15.4 H Hgb 12.0 L MCH 24.9 L MCHC 30.0 L Neutrophils # 14.6 H Lymphocytes # 0.5 L Monocytes # PT 23.9 H INR 2.7 H APTT Chloride BUN Creatinine Glucose POC Glucose (mg/dL) 132 H Hemoglobin A1c Troponin I Urine Blood Hyaline Casts Urine Mucus 12/02/17 12/02/17 05:59 06:20 WBC Hgb MCH MCHC Neutrophils # Lymphocytes # Monocytes # PT INR APTT Chloride 97 L BUN 30 H Creatinine 1.32 H Glucose 144 H POC Glucose (mg/dL) 147 H Hemoglobin A1c Troponin I Urine Blood Hyaline Casts Urine Mucus - Diagnostic Findings Chest x-ray: report reviewed, image reviewed Additional studies: EKG reviewed Assessment and Plan Plan: Assessment: #1. Acute exacerbation of congestive heart failure, with systolic dysfunction #2. Elevated troponins #3. Dyspnea and cough, likely related to the above #4. History of chronic atrial fibrillation, on anticoagulation #5. History of hypertrophic cardiomyopathy status post septal myectomy, and Bi- V pacemaker/AICD #6. History of myocardial infarction #7. Obstructive sleep apnea, on CPAP #8. Diabetes mellitus #9. hypertension, hyperlipidemia #10 Degenerative joint disease Plan: Patient had outpatient evaluation with Dr. Quiroz, and was not thought to have COPD, and his symptoms were primarily related to chronic congestive heart failure. We'll discontinue IV steroids, IV antibiotics, and breathing treatments. Continues on Lasix, cardiology is following. I performed a history & physical examination of the patient and discussed their management with my nurse practitioner, Jackelyn Madison. I reviewed the nurse practitioner's note and agree with the documented findings and plan of care. Lung sounds are diminished. The findings and the impression was discussed with the patient. I attest to the documentation by the nurse practitioner. Time with Patient: Greater than 30
[2017-12-02 12:42] VITALS: BP 116/62; PULSE 73
--- NOTE | 2017-12-02 13:27 | XR ---
EXAMINATION TYPE: XR chest 1V portable DATE OF EXAM: 12/02/2017 HISTORY: chf. REFERENCE: Previous study dated 12/01/2017. FINDINGS: There has been a midline sternotomy. There is a multilead pacing device in place on the lef t. Heart projects at the upper limits of normal in size. The lungs are clear. Pleural spaces are clear. IMPRESSION: BORDERLINE CARDIOMEGALY.
--- NOTE | 2017-12-02 15:26 | DS ---
DISCHARGE SUMMARY DATE OF SERVICE: 12/02/2017. FINAL DIAGNOSES: 1. Congestive heart failure acute exacerbation with acute on chronic systolic dysfunction, ejection fraction 35-40%. 2. Asthmatic bronchitis and acute purulent tracheobronchitis. 3. Troponin 0.0662 indeterminate. 4. Coumadin monitoring. 5. Increased WBC. 6. History of atrial fibrillation. 7. History of AICD. 8. History of hypertrophic cardiomyopathy with status post septal myomectomy. 9. Mitral regurgitation. 10.Diabetes mellitus type 2. 11.Hypertension. 12.Hyperlipidemia. 13.History of myocardial infarction. 14.History of sleep apnea. 15.History of diet-controlled diabetes mellitus type 2. 16.History of back surgery, degenerative joint disease. DISCHARGE DISPOSITION: The patient will be discharged in stable condition with guarded prognosis. Cardiology and Pulmonology cleared the patient for discharge. HISTORY OF PRESENT ILLNESS: This 72-year-old gentleman with the past history of multiple medical problems was admitted with CHF acute exacerbation, shortness of breath. The patient also had a purulent mucopurulent sputum also. Treated with antibiotics and bronchodilators. Patient improved significantly. Dr. Kelsey and Cardiology saw the patient and cleared the patient for discharge. On exam, vital signs are stable. CARDIOVASCULAR: S1, S2 RESPIRATORY: A few rhonchi. ABDOMEN: Soft, nontender. NERVOUS SYSTEM: No focal deficits. DISCHARGE ADVICE: 1. Diet is cardiac. 2. Activity limited until followup. 3. Follow up with Dr. Gil in [place] in 1-2 days with CBC, BMP. 4. Follow up with Dr. Cassie Tsang as recommended. MEDICATIONS: 1. Cordarone 200 mg p.o. daily. 2. Aspirin 81 mg p.o. daily. 3. Cozaar 25 mg p.o. daily. 4. Meclizine 25 mg daily p.r.n. 5. Lopressor 50 mg p.o. b.i.d. 6. Omeprazole 20 mg p.o. daily. 7. Pravachol 80 mg q.h.s. 8. Vitamin C/zinc 1 p.o. daily. 9. Coumadin 3.75 mg and 7.5 mg as at home. 10.Ceftin 500 mg p.o. b.i.d. for 3 days. 11.Lasix 40 mg p.o. daily. Hold on 03/15 and 2/11 and restart on 05/13. 12.Medrol Dosepak. The creatinine is 1.32. At this time I would recommend close monitor the creatinine as well as PT/INR because of antibiotics in the outpatient setting with Dr. Gil's office. MMCLARISSA / JUDI: [id number] /
[2017-12-02] MEDS ORDERED: FUROSEMIDE 40 MG TAB PO SCH (16:00)
[2017-12-09] MEDS ORDERED: WARFARIN 7.5 MG TAB PO SCH (18:00)
== END 2017-12-02 15:36 | disposition home or self-care (01) | DRG 293 ==
LOC: EC 04:03 → 6SEL 05:48
PROVIDERS: ADMIT Internal Medicine; ATTEND Internal Medicine
DX: I11.0 Hypertensive heart disease with heart failure (principal); E11.9 Type 2 diabetes mellitus without complications; E78.5 Hyperlipidemia, unspecified; G47.33 Obstructive sleep apnea (adult) (pediatric); H35.30 Unspecified macular degeneration; H54.8 Legal blindness, as defined in USA; I25.10 Atherosclerotic heart disease of native coronary artery without angina pectoris; I25.2 Old myocardial infarction; I34.0 Nonrheumatic mitral (valve) insufficiency; I42.1 Obstructive hypertrophic cardiomyopathy; I48.0 Paroxysmal atrial fibrillation; I48.2 Chronic atrial fibrillation; I49.3 Ventricular premature depolarization; I50.43 Acute on chronic combined systolic (congestive) and diastolic (congestive) heart failure; J20.9 Acute bronchitis, unspecified; J45.909 Unspecified asthma, uncomplicated; M19.90 Unspecified osteoarthritis, unspecified site; Z79.01 Long term (current) use of anticoagulants; Z79.82 Long term (current) use of aspirin; Z85.51 Personal history of malignant neoplasm of bladder; Z95.1 Presence of aortocoronary bypass graft; Z95.810 Presence of automatic (implantable) cardiac defibrillator; Z96.642 Presence of left artificial hip joint; Z88.2 Allergy status to sulfonamides; Z88.1 Allergy status to other antibiotic agents; Z91.041 Radiographic dye allergy status; Z79.899 Other long term (current) drug therapy; R74.8 Abnormal levels of other serum enzymes
CPT/HCPCS: 36415; 71045; 71046; 80048; 80053; 81001; 83036; 83880; 84484; 85025; 85610; 85730; 87040; 87070; 87086; 87205; 87502; 93005; 93306; 94640; 96374; 99285

== ENCOUNTER → 2017-12-07 | Outpatient (CLI) | payer MEDICARE, BC ==
[2017-12-07 14:33] LABS: INR 3.8 (<1.2); Prothrombin Time 34.2 sec (9.0-12.0)
[2017-12-07 14:52] LABS: HCT 46.6 % (39.0-53.0); HGB 14.1 gm/dL (13.0-17.5); Hypochromasia Moderate; MCH 25.2 pg (25.0-35.0); MCHC 30.3 g/dL (31.0-37.0); MCV 83.3 fL (80.0-100.0); Mean Platelet Volume 6.6; Platelet Count 331 k/uL (150-450); RBC 5.59 m/uL (4.30-5.90); RDW 14.7 % (11.5-15.5); WBC 23.8 k/uL (3.8-10.6)
[2017-12-07 15:56] LABS: Potassium 4.6 mmol/L (3.5-5.1)
[2017-12-07 15:57] LABS: Calcium 9.1 mg/dL (8.4-10.2)
== END | disposition home or self-care (01) ==
LOC: LABWHC1 12:45
PROVIDERS: ATTEND Hospitalist
DX: I50.9 Heart failure, unspecified (principal)
CPT/HCPCS: 36415; 80048; 85027; 85610

== ENCOUNTER → 2017-12-24 | Outpatient (CLI) | payer MEDICARE, BC ==
[2017-12-24 14:05] LABS: Basophils # (A) 0.1 k/uL (0-0.2); Basophils % (A) 1 %; Eosinophils # (A) 0.3 k/uL (0-0.7); Eosinophils % (A) 3 %; HCT 45.6 % (39.0-53.0); HGB 13.8 gm/dL (13.0-17.5); Hypochromasia Moderate; INR 2.1 (<1.2); Lymphocytes # (A) 0.9 k/uL (1.0-4.8); Lymphocytes % (A) 11 %; MCHC 30.3 g/dL (31.0-37.0); MCV 82.6 fL (80.0-100.0); Mean Platelet Volume 6.8; Monocytes # (A) 0.8 k/uL (0-1.0); Monocytes % (A) 9 %; Neutrophils # (A) 6.2 k/uL (1.3-7.7); Neutrophils % (A) 74 %; Platelet Count 249 k/uL (150-450); Prothrombin Time 19.4 sec (9.0-12.0); RBC 5.53 m/uL (4.30-5.90); RDW 15.2 % (11.5-15.5); WBC 8.4 k/uL (3.8-10.6)
[2017-12-24 14:13] LABS: Potassium 3.8 mmol/L (3.5-5.1)
== END | disposition home or self-care (01) ==
LOC: LABWHC1 12:44
PROVIDERS: ATTEND Internal Medicine
DX: Z51.81 Encounter for therapeutic drug level monitoring (principal); Z79.01 Long term (current) use of anticoagulants
CPT/HCPCS: 36415; 80048; 85025; 85610